=== PATIENT | male | born 1970 ===

== ENCOUNTER 2020-03-21 08:58 | Outpatient (REF) | payer BC, SELFPAY ==
[2020-03-21 11:56] LABS: Alanine Aminotransferase 40 U/L (0-40); Anion Gap 11 (12-20); Aspartate Amino Transferase 22 U/L (5-37); Blood Urea Nitrogen 20 mg/dL (9-16); Calcium 8.6 mg/dL (8.4-10.2); Carbon Dioxide 28 mmol/L (22-29); Chloride 106 mmol/L (96-108); Cholesterol 249 mg/dL; Estimated Glomerular Filt Rate > 60; Glucose Fasting 111 mg/dL (60-99); HDL Cholesterol 50 mg/dL; LDL Cholesterol Calculated 172 mg/dl; Potassium 4.2 mmol/l (3.3-5.1); Sodium 141 mmol/L (135-145); Triglycerides 138 mg/dL
== END 2020-03-21 08:59 | disposition home or self-care (01) ==
LOC: HO.HMGCLDS 08:58
PROVIDERS: PCP Internal Medicine; Visit Provider Internal Medicine
DX: E66.01 Morbid (severe) obesity due to excess calories (principal); F98.8 Other specified behavioral and emotional disorders with onset usually occurring in childhood and adolescence; I10 Essential (primary) hypertension; E78.5 Hyperlipidemia, unspecified
CPT/HCPCS: 80048; 80061; 84450; 84460

== ENCOUNTER 2020-06-27 09:06 | Outpatient (REF) | payer OTHER, SELFPAY ==
[2020-06-27 11:54] LABS: Alanine Aminotransferase 41 U/L (0-40); Anion Gap 16 (12-20); Aspartate Amino Transferase 26 U/L (5-37); Blood Urea Nitrogen 14 mg/dL (9-16); Carbon Dioxide 25 mmol/L (22-29); Chloride 101 mmol/L (96-108); Cholesterol 207 mg/dL; Estimated Glomerular Filt Rate > 60; Glucose Fasting 115 mg/dL (60-99); HDL Cholesterol 42 mg/dL; LDL Cholesterol Calculated 110 mg/dl; Potassium 3.9 mmol/L (3.3-5.1); Sodium 138 mmol/L (135-145); Triglycerides 278 mg/dL
== END 2020-06-27 09:07 | disposition home or self-care (01) ==
LOC: HO.HMGCLDS 09:06
PROVIDERS: PCP Internal Medicine; Visit Provider Internal Medicine
DX: E66.01 Morbid (severe) obesity due to excess calories (principal); I10 Essential (primary) hypertension; E78.5 Hyperlipidemia, unspecified; F98.8 Other specified behavioral and emotional disorders with onset usually occurring in childhood and adolescence
CPT/HCPCS: 36415; 80048; 80061; 84450; 84460

== ENCOUNTER 2021-03-28 06:25 | Outpatient (REF) | payer BC, SELFPAY | END 2021-03-28 06:26 | disposition home or self-care (01) | LOC: HO.HMGCLDS 06:25 | PROVIDERS: PCP Internal Medicine; Visit Provider Internal Medicine | DX: Z20.822 Contact with and (suspected) exposure to COVID-19 (principal) | CPT/HCPCS: C9803; U0003; U0005 ==

== ENCOUNTER 2021-10-05 09:31 | Outpatient (REF) | payer BC, SELFPAY ==
[2021-10-05 12:44] LABS: Alanine Aminotransferase 113 U/L (0-40); Albumin Level 4.2 g/dL (3.5-5.0); Alkaline Phosphatase 62 U/L (39-117); Anion Gap 10 (12-20); Aspartate Amino Transferase 60 U/L (5-37); Bilirubin Total 0.7 mg/dL (0.0-1.0); Blood Urea Nitrogen 17 mg/dL (9-16); Calcium 9.1 mg/dL (8.4-10.2); Carbon Dioxide 27 mmol/L (22-29); Chloride 107 mmol/L (96-108); Cholesterol 205 mg/dL; Estimated Glomerular Filt Rate > 60; Glucose Fasting 106 mg/dL (60-99); HDL Cholesterol 62 mg/dL; LDL Cholesterol Calculated 131 mg/dl; Potassium 4.4 mmol/L (3.3-5.1); Sodium 140 mmol/L (135-145); Triglycerides 60 mg/dL
[2021-10-05 13:02] LABS: Vitamin D 25-OH Total 26.1 ng/mL (>30)
[2021-10-05 14:43] LABS: Estimated Average Glucose 105 mg/dL; Hemoglobin A1c % 5.3 %
== END 2021-10-05 09:32 | disposition home or self-care (01) ==
LOC: HO.HMGCLDS 09:31
PROVIDERS: Visit Provider Internal Medicine
DX: E66.01 Morbid (severe) obesity due to excess calories (principal); E78.5 Hyperlipidemia, unspecified; F98.8 Other specified behavioral and emotional disorders with onset usually occurring in childhood and adolescence; I10 Essential (primary) hypertension; R73.01 Impaired fasting glucose
CPT/HCPCS: 36415; 80053; 80061; 82306; 83036

== ENCOUNTER 2022-01-11 07:28 | Outpatient (REF) | payer BC, SELFPAY ==
[2022-01-11 12:03] LABS: Alanine Aminotransferase 38 U/L (0-40); Albumin Level 4.3 g/dL (3.5-5.0); Alkaline Phosphatase 63 U/L (39-117); Aspartate Amino Transferase 27 U/L (5-37); Bilirubin Direct 0.4 mg/dL (0.0-0.5); Cholesterol 210 mg/dL; HDL Cholesterol 56 mg/dL; LDL Cholesterol Calculated 134 mg/dl; Triglycerides 101 mg/dL
== END 2022-01-11 07:29 | disposition home or self-care (01) ==
LOC: HO.HMGCLDS 07:28
PROVIDERS: PCP Internal Medicine; Visit Provider Internal Medicine
DX: E78.5 Hyperlipidemia, unspecified (principal); R74.8 Abnormal levels of other serum enzymes
CPT/HCPCS: 36415; 80061; 80076

== ENCOUNTER → 2022-02-28 14:26 | Outpatient (BNVA) | payer BC, SELFPAY | PROVIDERS: PCP Internal Medicine; Visit Provider Urology | DX: Z30.2 Encounter for sterilization (principal); F41.8 Other specified anxiety disorders | CPT/HCPCS: 55250 ==

== ENCOUNTER 2022-11-21 08:24 | Outpatient (AMB) | payer BC, SELFPAY ==
[2022-11-21 08:26] VITALS: BP 142/78; PULSE 90; O2SAT 98; BMI 40.7
--- NOTE | 2022-11-21 08:26 | MHC.PC.OV ---
Vital Signs 11/21/22 08:26 Height 5 ft 6 in Weight 252 lb BMI 40.7 BP 142/78 H Blood Pressure Location Rt brachial Position Sitting Pulse 90 Pulse Source Pulse Oximeter Pulse Oximetry (%) 98 Intake Visit Reasons: Physical exam Intake Note: pt is here for physical exam, pt states he as not had colonoscopy done, would like stool mail kit [employer] Worker Required: No Accompanied by: Self / Same As Patient Allergies No Known Allergies Allergy (Verified 11/21/22 08:44) Medication List - Last Reconciled 11/21/22 by Lori Fong MD bupropion HCl 300 mg PO QAM dextroamphetamine-amphetamine 10 mg 10 mg PO BID lisinopril 10 mg PO DAILY multivitamin 1 tab PO DAILY rosuvastatin 5 mg PO .three times a week 90 days zolpidem 10 mg PO BEDTIME PRN Tobacco use date assessed: 11/21/22 Dental Screening Dental Screen Date: 11/21/22 Did you have a dental visit in the last 12 months?: Yes Did you have a dental problem in the last 6 months where you did not have access to dental care?: No Was dental information given to patient?: Patient has dentist HPI Physical exam HPI Details 52 year here today for physical exam has hypertension currently on lisinopril, with blood pressure at home running from between 120-130 systolic over 80, occasionally get it up to 140/80 but very rare. He has dyslipidemia currently on rosuvastatin, has chronic insomnia takes zolpidem as needed, has ADD on Adderall stable controlled on present medication and takes bupropion for anxiety disorder, currently being followed by Psychiatrist online. Has not had a colonoscopy but would like to do the Cologuard testing instead. Has had his COVID vaccinations including the bivalent booster and up-to-date with his flu shot and Tdap. [facility] Medical History Attention deficit disorder (ADD) in adult Colon cancer screening Dyslipidemia Elevated liver enzymes Essential hypertension Impaired fasting glucose Insomnia Morbid obesity Surgical History No pertinent past surgical history Family History Father Arthritis Mother No problems noted. Brother No problems noted. 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 45922 - PHQ-9 Billing: Patient declined-do not bill (Patient states that he currently is already being seen by Psychiatry) Source: Developed by Drs. Ariel Garcia, Dunia Maria, Milind Foster and colleagues, with an educational britta from [employer]. Thrive Questionnaire Date Thrive assessed: 11/21/22 I am a: Patient What is your living situation today?: I have a steady place to live Within the past 12 months, did the food you bought not last and you didn't have the money to get more?: Never true Within the past 12 months, did you worry whether your food would run out before you got money to buy more?: Never true Do you have trouble paying for medicines?: No Do you have trouble getting transportation to medical appointments?: No Do you have trouble paying your heating and electricity bill?: No Do you have trouble taking care of your child, family member or friend?: No Do you have trouble with day-to-day activities such as bathing, preparing meals, shopping, managing finances, etc.?: No Are you currently unemployed and looking for a job?: No Are you interested in more education?: No AUDIT C Alcohol Use Questionnaire (AUDIT-C) 1. How often do you have a drink containing alcohol?: Never Total Score: 0 MINA-7 AMB Questionnaire MINA-7 Date MINA - 7 assessed: 11/21/22 Source: Developed by Drs. Ariel Garcia, Dunia Maria, Milind Foster and colleagues, with an educational britta from [employer]. MINA-7 Assessment Billing MINA-7 Assessment Tool: pt declined-do not bill (States he is already being seen by Psychiatry) Review of Systems Const Denies chills, Denies fever(s), Denies snoring and Reports weight loss Eyes Reports no additional complaints ENT Reports no additional complaints Card Denies chest pain at rest, Denies chest pain with activity, Denies syncope, Denies irregular heart rhythm, Denies lightheadedness, Denies dyspnea and Denies dyspnea on exertion Resp Denies cough, Denies dyspnea, Denies dyspnea on exertion and Denies snoring GI Denies abdominal pain, Denies melena, Denies hematochezia and Denies heartburn Reports as per HPI Musc Reports no additional complaints Skin/Breast Details: Notices that he gets hives when he eats peanut butter Denies lesions and Denies rash Neuro Denies syncope Psych Reports no additional complaints Endo Reports no additional complaints Nasir/Lymph Reports no additional complaints Aller/Immun Reports no additional complaints Physical exam (Primary Care) Vital Signs: Last Vital Signs Pulse 90 11/21/22 08:26 BP 142/78 H 11/21/22 08:26 Pulse Ox 98 11/21/22 08:26 BMI result Body Mass Index 40.7 Tobacco/Smoking Status: Tobacco use Status Tobacco use date assessed 11/21/22 11/21/22 08:28 Patient Tobacco Use Status Never used Tobacco 11/21/22 08:28 e-Cigarette/Vaping Use Never Used 11/21/22 08:28 Thrive Assessment: Date of Thrive Assessment Date Thrive assessed 11/21/22 11/21/22 08:38 Const General: no acute distress and alert Nutritional Appearance: obese Orientation/consciousness: patient oriented x3 Limitations: no limitations [facility] Head: Yes atraumatic Ears: hearing grossly normal bilaterally General nose exam: Normal external nose present Face and sinus: Yes face symmetric Eyes Other: Wears corrective lenses, up-to-date with his vision exam, sees [place] [facility] General: appearance normal, both eyes and all related structures Neck Neck: Yes full ROM, Yes no lymphadenopathy and Yes supple Chest Chest palpation & inspection: normal inspection of the chest and normal palpation of entire chest wall Resp Auscultation: clear to auscultation bilaterally Cardio Other: S1-S2 present , regular rate and rhythm GI Palpation (GI): Soft to palpation, nontender, no guarding and no masses Male General Exam: Yes normal external exam Back/Spine/Pelvis Back: No back tenderness Skin General skin exam: no rashes or lesions noted Neuro General: patient oriented x3, gait normal, moves all extremities, no focal motor deficits and CN's II-XI intact bilaterally Gait exam (Neuro): Normal gait present Extrem General: Yes full ROM, Yes no joint enlargement, Yes no clubbing, cyanosis or edema, Yes no pedal edema, Yes no calf tenderness and Yes normal gait Psych Appearance: grossly normal and well kempt Mental Status: mental status grossly normal Speech and movement: Clear speech present Affect: normal affect Assessment and Plan Assessment & Plan (1) Annual visit for general adult medical examination with abnormal findings: Code(s): Z00.01 - Encounter for general adult medical examination with abnormal findings Plan: Will check appropriate labs. Continue with regular dental visit every 6 months and regular eye exams, sees [facility]. Take adequate calcium in diet and vitamin-D 3 at 2000 IU per cap once a day, in addition to weight-bearing exercises to help maintain good muscle tone and weight control. Instructed to do self-testicular exam to check for any mass. Recently had a vasectomy. Cologuard testing ordered up-to-date with all his vaccines and to get yearly flu shot and the new COVID booster when it is out (2) Essential hypertension: Code(s): I10 - Essential (primary) hypertension Plan: Blood pressure at home has been running from between 120 to 130 systolic over 80. Occasionally would run in the 140/80 but very infrequent . Blood pressure goal is less than 130/80. Continue with lisinopril 10 mg daily. . Continue monitor blood pressure at home, call if persistently over 140/90. Reinforced importance of following a low sodium diet, getting regular exercise, and lowering stress levels. (3) Dyslipidemia: Code(s): E78.5 - Hyperlipidemia, unspecified Plan: fasting lipid profile ordered . Continue with rosuvastatin 5 mg taken 3 times a week , in addition to adherence to low-cholesterol diet and regular exercise, at least 30 minutes 3 to 4 times a week. Advised patient to make healthy food choices, eat more fruits, vegetables, whole grains, wild caught fish and low-fat dairy. Limit amount of meat and fried or fatty food products, as well as processed foods and fast foods.. (4) Insomnia: Code(s): G47.00 - Insomnia, unspecified Qualifiers: Insomnia type: primary Qualified Code(s): F51.01 - Primary insomnia Plan: Refill sent for zolpidem, to take as needed for insomnia (5) Impaired fasting glucose: Code(s): R73.01 - Impaired fasting glucose (6) Morbid obesity: Code(s): E66.01 - Morbid (severe) obesity due to excess calories Plan: Recommended focusing on improving your health instead of dieting. : Eat Mediterranean diet, limit foods high in fat, sugar, and calories, eat slowly, pay attention to portion sizes, plan your meals ahead of time, start regular physical activity 150 minutes of moderate intensity exercise or 90 minutes/week of vigorous exercise and increase water intake. (7) Attention deficit disorder (ADD) in adult: Code(s): F98.8 - Other specified behavioral and emotional disorders with onset usually occurring in childhood and adolescence Plan: Stable controlled on dextroamphetamine-amphetamine, 10 mg taken twice a day a.m. and p.m. at around 02:00 o'clock in the afternoon. Refill sent (8) Colon cancer screening: Code(s): Z12.11 - Encounter for screening for malignant neoplasm of colon Plan: Cologuard test ordered Orders: Orders Alanine Aminotransferase 05/30/23 E66.01 - Morbid (severe) obesity due to excess calories, E78.5 - Hyperlipidemia, unspecified, F98.8 - Other specified behavioral and emotional disorders with onset usually occurring in childhood and adolescence, G47.00 - Insomnia, unspecified, I10 - Essential (primary) hypertension, R73.01 - Impaired fasting glucose, Z00.01 - Encounter for general adult medical examination with abnormal findings Aspartate Amino Transferase 05/30/23 E66.01 - Morbid (severe) obesity due to excess calories, E78.5 - Hyperlipidemia, unspecified, F98.8 - Other specified behavioral and emotional disorders with onset usually occurring in childhood and adolescence, G47.00 - Insomnia, unspecified, I10 - Essential (primary) hypertension, R73.01 - Impaired fasting glucose, Z00.01 - Encounter for general adult medical examination with abnormal findings Basic Metabolic Panel Fasting 05/30/23 E66.01 - Morbid (severe) obesity due to excess calories, E78.5 - Hyperlipidemia, unspecified, F98.8 - Other specified behavioral and emotional disorders with onset usually occurring in childhood and adolescence, G47.00 - Insomnia, unspecified, I10 - Essential (primary) hypertension, R73.01 - Impaired fasting glucose, Z00.01 - Encounter for general adult medical examination with abnormal findings Hemoglobin A1c 05/30/23 E66.01 - Morbid (severe) obesity due to excess calories, E78.5 - Hyperlipidemia, unspecified, F98.8 - Other specified behavioral and emotional disorders with onset usually occurring in childhood and adolescence, G47.00 - Insomnia, unspecified, I10 - Essential (primary) hypertension, R73.01 - Impaired fasting glucose, Z00.01 - Encounter for general adult medical examination with abnormal findings Lipid Panel 05/30/23 E66.01 - Morbid (severe) obesity due to excess calories, E78.5 - Hyperlipidemia, unspecified, F98.8 - Other specified behavioral and emotional disorders with onset usually occurring in childhood and adolescence, G47.00 - Insomnia, unspecified, I10 - Essential (primary) hypertension, R73.01 - Impaired fasting glucose, Z00.01 - Encounter for general adult medical examination with abnormal findings Referrals Cologuard Test Z12.11 - Encounter for screening for malignant neoplasm of colon, Z12.12 - Encounter for screening for malignant neoplasm of rectum Medications: Changed From dextroamphetamine-amphetamine 10 mg administer doses at least 4-6 hours apart 10 mg PO BID 60 tabs 0RF F98.8 - Other specified behavioral and emotional disorders with onset usually occurring in childhood and adolescence To dextroamphetamine-amphetamine 10 mg Do not take 2nd dose later than 3 pm 10 mg PO BID 60 tabs 0RF F98.8 - Other specified behavioral and emotional disorders with onset usually occurring in childhood and adolescence Refilled lisinopril 10 mg PO DAILY 90 tabs 3RF I10 - Essential (primary) hypertension dextroamphetamine-amphetamine 10 mg administer doses at least 4-6 hours apart 10 mg PO BID 60 tabs 0RF F98.8 - Other specified behavioral and emotional disorders with onset usually occurring in childhood and adolescence zolpidem 10 mg PO BEDTIME PRN 10 tabs 0RF sleep G47.00 - Insomnia, unspecified Coding Level of Care Code New Pt Prev Care 40-64y(53203) Diagnoses Annual visit for general adult medical examination with abnormal findings Z00.01 Essential hypertension I10 Dyslipidemia E78.5 Insomnia F51.01 Insomnia type: primary Impaired fasting glucose R73.01 Morbid obesity E66.01 Attention deficit disorder (ADD) in adult F98.8 Colon cancer screening Z12.11
== END 2022-11-21 09:39 | disposition home or self-care (01) ==
PROVIDERS: Visit Provider Internal Medicine
DX: Z00.01 Encounter for general adult medical examination with abnormal findings (principal); I10 Essential (primary) hypertension; E66.01 Morbid (severe) obesity due to excess calories; Z68.41 Body mass index [BMI] 40.0-44.9, adult; E78.5 Hyperlipidemia, unspecified; F51.01 Primary insomnia; R73.01 Impaired fasting glucose; F98.8 Other specified behavioral and emotional disorders with onset usually occurring in childhood and adolescence; Z12.11 Encounter for screening for malignant neoplasm of colon
CPT/HCPCS: 99396

== ENCOUNTER 2023-01-18 09:24 | Outpatient (AMB) | payer BC, SELFPAY ==
--- NOTE | 2023-01-18 09:57 | AM.OFFWIN_ITS ---
Intake Vital Signs 01/18/23 09:58 Height 5 ft 6 in Weight 114.305 kg BMI 40.7 BP 150/90 H Blood Pressure Location Rt brachial Position Sitting Pulse 80 Pulse Source Pulse Oximeter Temp 98.0 F Temp Source Oral Intake Visit Reasons: EP, finger stitches removal [phone] Intake Note: Pt is here today for Rt hand middle finger stitches removal Patient Tobacco Use Status: Never used Tobacco Allergies No Known Allergies Allergy (Verified 11/21/22 08:44) Do you need a note to return to daycare/school/sports/work: No HPI HPI Comments History of Present Illness Details 1002 52-year-old male presents for suture rem oval. No related complaints. No fevers, chills, redness, discharge from site, numbness or tingling. Physical exam significant for healing laceration to hand Plan at this time suture removal. This is a simple suture removal no signs of infection or abscess. No signs of neurovascular compromise. Educated patient on diagnosis and treatment plan, answered all question, patient verbalizes understanding. At this time patient will be discharged home, advised to return with new or worsening symptoms. Educated on worrisome signs and symptoms and when to return. At this time I feel comfortable discharge home. [facility] Medical History Elevated liver enzymes Colon cancer screening Impaired fasting glucose Insomnia Morbid obesity Dyslipidemia Essential hypertension Attention deficit disorder (ADD) in adult Surgical History No pertinent past surgical history Family History Father Arthritis Mother No problems noted. Brother No problems noted. 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 Oriented X3.? No acute distress.? Head: Normocephalic, atraumatic, no step-offs or deformities Eyes: Pupils equal, round and reactive to light.? CVS: Normal heart rate and rhythm.? Pulses normal.? Respiratory: No respiratory distress.? Breath sounds normal.? Skin: Skin warm and dry.? Normal skin color.? Normal skin turgor.?+ [address] to right middle finger ( healing well) Extremities: No lower extremity edema.? No calf ttp. 5/5 strength to bilateral upper and lower extremities Neuro: Oriented X 3.? No motor deficit.? No sensory deficit. CN 2-12 intact Assessment & Plan Assessment & Plan (1) Visit for suture removal: Code(s): Z48.02 - Encounter for removal of sutures Plan Take your medications as prescribed. If you were prescribed antibiotics today, it is important that you take your medication to their entirety, do not skip any doses, do not finish them early. Follow-up with your primary care provider this week. Return to the emergency department with new or worsening symptoms. Such as fevers, chills, chest pain, shortness of breath, nausea, vomiting, dizziness, headache, vision changes, lethargy In case of emergency call 911 Coding Level of Care Code Est Pt Level 3 (45916) Diagnoses Visit for suture removal Z48.02
[2023-01-18 09:58] VITALS: BP 150/90; PULSE 80; TEMP 36.7; BMI 40.7
== END 2023-01-18 14:56 | disposition home or self-care (01) ==
PROVIDERS: PCP Internal Medicine; Visit Provider Physician Assistant
DX: Z48.02 Encounter for removal of sutures (principal)
CPT/HCPCS: 99213

== ENCOUNTER 2023-05-29 06:18 | Outpatient (REF) | payer BC, SELFPAY ==
[2023-05-29 10:49] LABS: Estimated Average Glucose 117 mg/dL; Hemoglobin A1c % 5.7 % (<6.0)
[2023-05-29 11:04] LABS: Alanine Aminotransferase 36 U/L (0-40); Anion Gap 10 (12-20); Aspartate Amino Transferase 22 U/L (5-37); Blood Urea Nitrogen 18 mg/dL (9-16); Calcium 9.2 mg/dL (8.4-10.2); Carbon Dioxide 26 mmol/L (22-29); Chloride 106 mmol/L (96-108); Cholesterol 201 mg/dL (<200); Estimated Glomerular Filt Rate > 60; Glucose Fasting 115 mg/dL (60-99); HDL Cholesterol 52 mg/dL (>40); LDL Cholesterol Calculated 126 mg/dL (<100); Sodium 138 mmol/L (135-145); Triglycerides 115 mg/dL (<150)
[2023-05-29 11:10] LABS: Vitamin D 25-OH Total 26.4 ng/mL (>30)
== END 2023-05-29 06:19 | disposition home or self-care (01) ==
LOC: HO.HMGCLDS 06:18
PROVIDERS: PCP Internal Medicine; Visit Provider Internal Medicine
DX: Z00.01 Encounter for general adult medical examination with abnormal findings (principal); E66.01 Morbid (severe) obesity due to excess calories; E78.5 Hyperlipidemia, unspecified; I10 Essential (primary) hypertension; F98.8 Other specified behavioral and emotional disorders with onset usually occurring in childhood and adolescence; R73.01 Impaired fasting glucose; G47.00 Insomnia, unspecified
CPT/HCPCS: 36415; 80048; 80061; 82306; 83036; 84450; 84460

== ENCOUNTER 2023-06-02 08:22 | Outpatient (AMB) | payer BC, SELFPAY ==
[2023-06-02 08:27] VITALS: BP 136/80; PULSE 92; O2SAT 96; BMI 41.3
--- NOTE | 2023-06-02 08:27 | MHC.PC.OV ---
Vital Signs 06/02/23 08:27 Height 5 ft 6 in Weight 256 lb BMI 41.3 BP 136/80 Blood Pressure Location Lt brachial Position Sitting Pulse 92 Pulse Source Pulse Oximeter Pulse Oximetry (%) 96 Oxygen Delivery Method Room Air Intake Visit Reasons: 6 month fu HTN Intake Note: Pt is here today for 6 months follow up visit. Allergies No Known Allergies Allergy (Verified 06/02/23 08:52) Medication List - Last Reconciled 06/02/23 by Lori Fong MD bupropion HCl 300 mg PO QAM dextroamphetamine-amphetamine 10 mg 10 mg PO BID lisinopril 10 mg PO DAILY multivitamin 1 tab PO DAILY rosuvastatin 5 mg PO .three times a week 90 days zolpidem 10 mg PO BEDTIME PRN Tobacco use date assessed: 06/02/23 Dental Screening Dental Screen Date: 06/02/23 Did you have a dental visit in the last 12 months?: Yes Did you have a dental problem in the last 6 months where you did not have access to dental care?: No Was dental information given to patient?: Patient has dentist HPI 6 month fu HTN HPI Details 53-year-old male with hypertension, hyperlipidemia, prediabetes, attention deficit disorder, morbid obesity, and generalized anxiety disorder, here today for follow-up. He states that he has been off his Adderall now for several months due to the shortage of the medication,, has been having some issues keeping his concentration and focus while at work, and would like to get another prescription sent to his pharmacy to see if it is available. He did notice that once he was off Adderall his blood pressure has been better, has been checking it at at home and it has been running from between 120 to 130/80, with occasional episodes that it goes up to 150-170 systolic whenever he is under lot of stress. Denies any chest pain, shortness of breath, palpitations, headache or lightheadedness. Anxiety controlled on bupropion , and takes zolpidem only as needed when he has difficulty sleeping at night, which is infrequent. Latest fasting labs done showed he has prediabetes but hemoglobin A1c is at 5.7%. Fasting lipids showed improvement in his LDL cholesterol, still has low vitamin-D level at 26 ng/ml His Cologuard test came back positive and has been referred to [facility] for a diagnostic colonoscopy. [facility] Medical History Vitamin D deficiency Positive colorectal cancer screening using Cologuard test Elevated liver enzymes Colon cancer screening Impaired fasting glucose Insomnia Morbid obesity Dyslipidemia Essential hypertension Attention deficit disorder (ADD) in adult Surgical History No pertinent past surgical history Family History Father Arthritis Mother No problems noted. Brother No problems noted. 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 1. Little interest or pleasure in doing things: not at all 2. Feeling down, depressed, or hopeless: not at all 3. Trouble falling or staying asleep, or sleeping too much: not at all 4. Feeling tired or having little energy: not at all 5. Poor appetite or overeating: not at all 6. Feeling bad about yourself - or that you are a failure or have let yourself or your family down: not at all 7. Trouble concentrating on things, such as reading the newspaper or watching television: not at all 8. Moving or speaking so slowly that other people could have noticed. Or the opposite - being so fidgety or restless that you have been moving around a lot more than usual: not at all 9. Thoughts that you would be better off or of hurting yourself in some way: not at all Total score: 0 Depression Screening Interpretation: Negative Depression Screening Done: Yes 14856 - PHQ-9 Billing: Yes Source: Developed by Drs. Ariel Garcia, Dunia Maria, Milind Foster and colleagues, with an educational britta from [employer]. Thrive Questionnaire Date Thrive assessed: 06/02/23 I am a: Patient What is your living situation today?: I have a steady place to live Within the past 12 months, did the food you bought not last and you didn't have the money to get more?: Never true Within the past 12 months, did you worry whether your food would run out before you got money to buy more?: Never true Do you have trouble paying for medicines?: No Do you have trouble getting transportation to medical appointments?: No Do you have trouble paying your heating and electricity bill?: No Do you have trouble taking care of your child, family member or friend?: No Do you have trouble with day-to-day activities such as bathing, preparing meals, shopping, managing finances, etc.?: No Are you currently unemployed and looking for a job?: No Are you interested in more education?: No THRIVE Score: 0 AUDIT C Alcohol Use Questionnaire (AUDIT-C) 1. How often do you have a drink containing alcohol?: 2-3 times a week 2. How many drinks containing alcohol do you have on a typical day when you are drinking?: 1 or 2 3. How often do you have six or more drinks on one occasion?: Never Total Score: 3 MINA-7 AMB Questionnaire MINA-7 Date MINA - 7 assessed: 06/02/23 Feeling nervous, anxious, or on edge: 0 = Not at all Not being able to stop or control worryin = Not at all Worrying too much about different things: 1 = Several days Trouble relaxin = Not at all Being so restless that it is hard to sit still: 0 = Not at all Becoming easily annoyed or irritable: 0 = Not at all Feeling afraid as if something awful might happen: 0 = Not at all Total MINA-7 score (0-4 normal; 5-9 mild; 10-14 moderate; 15-21 severe): 1 Source: Developed by Drs. Ariel Garcia, Dunia Maria, Milind Foster and colleagues, with an educational britta from [employer]. MINA-7 Assessment Billing MINA-7 Assessment Tool: MINA-7 Assessment 85769 Review of Systems Const Denies chills, Denies fever(s) and Denies snoring Eyes Reports no additional complaints ENT Reports no additional complaints Card Denies chest pain at rest, Denies chest pain with activity, Denies syncope, Denies irregular heart rhythm, Denies lightheadedness and Denies dyspnea on exertion Resp Denies cough, Denies dyspnea on exertion and Denies snoring GI Denies abdominal pain, Denies melena, Denies hematochezia and Denies heartburn Reports no additional complaints Musc Reports no additional complaints Skin/Breast Details: Notices that he gets hives when he eats peanut butter Denies lesions and Denies rash Neuro Denies syncope Psych Reports as per HPI Endo Reports no additional complaints Nasir/Lymph Reports no additional complaints Aller/Immun Reports no additional complaints Physical exam (Primary Care) Vital Signs: Last Vital Signs Pulse 92 06/02/23 08:27 BP 136/80 06/02/23 08:27 Pulse Ox 96 06/02/23 08:27 Oxygen Delivery Method Room Air 06/02/23 08:27 BMI result Body Mass Index 41.3 BMI Assessment/Plan discussion: High BMI High, discussed plan: lifestyle, weight reduction, dietary, physical activity and alcohol moderation Tobacco/Smoking Status: Tobacco use Status Tobacco use date assessed 06/02/23 06/02/23 08:31 Patient Tobacco Use Status Never used Tobacco 06/02/23 08:31 e-Cigarette/Vaping Use Never Used 06/02/23 08:31 Depression Screening Interpretation: Negative Thrive Assessment: Date of Thrive Assessment Date Thrive assessed 11/21/22 06/02/23 08:31 Const General: comfortable, no acute distress and alert Nutritional Appearance: obese morbidly obese Orientation/consciousness: patient oriented x3 HENMT Head: Yes normocephalic Ears: hearing grossly normal bilaterally General nose exam: Normal external nose present Face and sinus: Yes face symmetric Eyes Other: Wears corrective lenses, up-to-date with his vision exam, sees [place] vision associated General: appearance normal, both eyes and all related structures Neck Neck: Yes full ROM, Yes no lymphadenopathy and Yes supple Chest Chest palpation & inspection: normal inspection of the chest and normal palpation of entire chest wall Resp Auscultation: clear to auscultation bilaterally Cardio Other: S1-S2 present , regular rate and rhythm GI Palpation (GI): Soft to palpation, nontender, no guarding and no masses Male General Exam: Yes normal external exam Back/Spine/Pelvis Back: No back tenderness Skin General skin exam: no rashes or lesions noted Neuro General: patient oriented x3, gait normal, moves all extremities, no focal motor deficits and CN's II-XI intact bilaterally Gait exam (Neuro): Normal gait present Extrem General: Yes full ROM, Yes no joint enlargement, Yes no clubbing, cyanosis or edema, Yes no pedal edema, Yes no calf tenderness and Yes normal gait Psych Appearance: grossly normal and well kempt Mental Status: mental status grossly normal Speech and movement: Clear speech present Affect: normal affect Results Reviewed Results Reviewed: NTERED: 05/29/[address]: ORDERED: Met Prof Fast, AST, ALT, Lipid Panel, Vitamin D 25-OH Test Result Flag Reference Sodium 138 135-145 mmol/L Potassium 4.0 3.3-5.1 mmol/L CL 106 96-108 mmol/L CO2 26 22-29 mmol/L Gap 10 L 12-20 BUN 18 H 9-16 mg/dL Creat 0.96 0.5-1.4 mg/dL EGFR > 60 NOTE: For -Citizen Of [place] individuals, multiply the result by 1.210. Chronic Kidney Disease: Estimated GFR < 60 mL/min/1.73m2 Severe Kidney Disease: Estimated GFR < 15 mL/min/1.73m2 FBS 115 H 60-99 mg/dL A fasting glucose from 100-125 mg/dl is considered impaired (pre-diabetes). CA 9.2 8.4-10.2 mg/dL AST (GOT) 22 5-37 U/L ALT (GPT) 36 0-40 U/L Triglyceride 115 <150 mg/dL Desirable Triglyceride: less than 150 mg/dL Borderline High Triglyceride 150-199 mg/dL High Triglyceride: 200-499 mg/dL Very High Triglyceride: greater than or equal to 5OO mg/dL Cholesterol 201 H <200 mg/dL Desirable Cholesterol: less than 200 mg/dL Borderline High Cholesterol: 200-239 mg/dL High Cholesterol: greater than 239 mg/dL LDL Calculated 126 H <100 mg/dL Desirable LDL: less than 100 mg/dL Near Optimal/Above Optimal LDL: 110-129 mg/dL Borderline High LDL: 130-159 mg/dL High LDL: 160-189 mg/dL Very High LDL: greater than or equal to 190 mg/dL HDL 52 >40 mg/dL Desirable HDL: greater than 40 mg/dL Note: This HDL assay may give artificially low results in patients with liver disease. Vit D 25-OH Tot 26.4 L >30 ng/mL Health Based Reference Values* < 20 ng/mL Deficient 20-30 ng/mL Insufficient > 30 ng/mL Sufficient Laboratory Tests 05/29/23 06:28 Estimat Average Glucose 117 Hemoglobin A1c % 5.7 Assessment and Plan Assessment & Plan (1) Vitamin D deficiency: Code(s): E55.9 - Vitamin D deficiency, unspecified Plan: Prescription sent for high[place] 3 [place] [address] units per capsule to take once a week for the next 3 months. Once finished taking prescription, continue taking [id number] vitamin-D 3 at 2000 units once a day (2) Positive colorectal cancer screening using Cologuard test: Code(s): R19.5 - Other fecal abnormalities Plan: Already ordered a GI consult for diagnostic colonoscopy. (3) Insomnia: Code(s): G47.00 - Insomnia, unspecified Qualifiers: Insomnia type: primary Qualified Code(s): F51.01 - Primary insomnia Plan: Refill sent on his zolpidem prescription, to take only as needed for acute episodes of insomnia (4) Impaired fasting glucose: Code(s): R73.01 - Impaired fasting glucose Plan: Your fasting blood sugars elevated above 100 mg/dL. Impaired glucose metabolism makes you at risk for developing diabetes mellitus type 2, as well as heart attack and stroke later on. Stressed importance of lifestyle changes, weight loss, healthy eating habits, and regular exercise are important, and can prevent the progression to diabetes (5) Dyslipidemia: Code(s): E78.5 - Hyperlipidemia, unspecified Plan: Recent fasting labs showed improvement in his LDL cholesterol as compared to last check. Continue with rosuvastatin at the same dose in addition to adherence to healthy eating habits, regular exercise and weight (6) Essential hypertension: Code(s): I10 - Essential (primary) hypertension Plan: Blood pressure better and almost at goal, this is however off Adderall, will increase lisinopril dose to 20 mg once a day, goal blood pressure less than 130/90. Reinforced importance of following a low-salt diet, getting regular exercise, to promote weight loss, good stress management (7) Attention deficit disorder (ADD) in adult: Code(s): F98.8 - Other specified behavioral and emotional disorders with onset usually occurring in childhood and adolescence Plan: Refill sent on his Adderall prescription at the same dose. Monitor blood pressure once he starts taking Adderall again, (8) Morbid obesity: Code(s): E66.01 - Morbid (severe) obesity due to excess calories Plan: Discussed need to increase activity and weight reduction. Recommended focusing on improving health instead of dieting. Mediterranean diet is a healthy diet that helps, limit food high in fat, sugar, and calories. Eat slowly, pay attention to portion sizes, plan your meals ahead of time, start regular physical activity, at least 150 minutes of moderate intensity exercise, or 90 minutes per week of vigorous exercise. Orders: Orders Comprehensive [place]. Panel Fast 10/06/23 E55.9 - Vitamin D deficiency, unspecified, E66.01 - Morbid (severe) obesity due to excess calories, E78.5 - Hyperlipidemia, unspecified, F98.8 - Other specified behavioral and emotional disorders with onset usually occurring in childhood and adolescence, I10 - Essential (primary) hypertension, R73.01 - Impaired fasting glucose Lipid Panel 10/06/23 E55.9 - Vitamin D deficiency, unspecified, E66.01 - Morbid (severe) obesity due to excess calories, E78.5 - Hyperlipidemia, unspecified, F98.8 - Other specified behavioral and emotional disorders with onset usually occurring in childhood and adolescence, I10 - Essential (primary) hypertension, R73.01 - Impaired fasting glucose Vitamin D 25-OH Total 10/06/23 E55.9 - Vitamin D deficiency, unspecified, E66.01 - Morbid (severe) obesity due to excess calories, E78.5 - Hyperlipidemia, unspecified, F98.8 - Other specified behavioral and emotional disorders with onset usually occurring in childhood and adolescence, I10 - Essential (primary) hypertension, R73.01 - Impaired fasting glucose Medications: New bupropion HCl 300 mg PO QAM 90 tabs 3RF cholecalciferol (vitamin D3) 1,250 mcg PO QWEEK 3 months 13 caps 0RF E55.9 - Vitamin D deficiency, unspecified Refilled rosuvastatin 5 mg PO .three times a week 90 days 36 tabs 3RF E78.5 - Hyperlipidemia, unspecified zolpidem 10 mg PO BEDTIME PRN 10 tabs 0RF sleep G47.00 - Insomnia, unspecified dextroamphetamine-amphetamine 10 mg Do not take 2nd dose later than 3 pm 10 mg PO BID 60 tabs 0RF F98.8 - Other specified behavioral and emotional disorders with onset usually occurring in childhood and adolescence Coding Level of Care Code Est Pt Level 4 (21134) Diagnoses Vitamin D deficiency E55.9 Positive colorectal cancer screening using Cologuard test R19.5 Primary insomnia F51.01 Insomnia type: primary Impaired fasting glucose R73.01 Dyslipidemia E78.5 Essential hypertension I10 Attention deficit disorder (ADD) in adult F98.8 Morbid obesity E66.01 Additional Codes MINA-7 Assessment Billing - MINA-7 Assessment Tool: MINA-7 Assessment 67888 ([id number])
== END 2023-06-02 09:06 | disposition home or self-care (01) ==
PROVIDERS: PCP Internal Medicine; Visit Provider Internal Medicine
DX: R19.5 Other fecal abnormalities (principal); E66.01 Morbid (severe) obesity due to excess calories; Z68.41 Body mass index [BMI] 40.0-44.9, adult; F51.01 Primary insomnia; E55.9 Vitamin D deficiency, unspecified; R73.01 Impaired fasting glucose; E78.5 Hyperlipidemia, unspecified; I10 Essential (primary) hypertension; F98.8 Other specified behavioral and emotional disorders with onset usually occurring in childhood and adolescence
CPT/HCPCS: 99214

== ENCOUNTER 2023-07-18 09:27 | Outpatient (AMB) | payer BC, SELFPAY ==
--- NOTE | 2023-07-18 09:33 | A.OFFVIS_ITS ---
Vital Signs 07/18/23 09:35 Height 5 ft 6 in Weight 250 lb BMI 40.3 BP 137/82 Blood Pressure Location Lt brachial Position Sitting Pulse 97 Intake Visit Reasons: Other fecal abnormalities Intake Note: Patient new consult for fecal abnormalities Patient cc: diarrhea on and off, denies any other GI issues. Crisis Counselor Required: No Accompanied by: Self / Same As Patient Allergies No Known Allergies Allergy (Verified 07/18/23 09:33) HPI HPI Other fecal abnormalities: Details: 53 year old? male with past medical history of dyslipidemia, hypertension, ADD, obesity, insomnia, and anxiety is here today for pre colonoscopy screening. Patient had positive cologuard in May. ? This is his first colonoscopy screening.? Patient denies any gastrointestinal symptoms in the past or at present.? However patient does admit to occasional loose stools after drinking milk or any lactose containing food. Denies any personal or family history of gastrointestinal disease, colon polyps, or cancer.? Denies history of difficulty with sedation or anesthesia in the past.? Negative for history of sleep apnea.? Denies any history of cardiac, renal, pulmonary, or hepatic disease.?? No history of infectious? diseases like hepatitis A, B, C, HIV or tuberculosis.? Patient is not on any anticoagulation therapy. [facility] Medical History Vitamin D deficiency Positive colorectal cancer screening using Cologuard test Elevated liver enzymes Colon cancer screening Impaired fasting glucose Insomnia Morbid obesity Dyslipidemia Essential hypertension Attention deficit disorder (ADD) in adult Surgical History No pertinent past surgical history Family History Father Arthritis Mother No problems noted. Brother No problems noted. 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 Current occupational exposures/hazards: No Cognitive needs: No Hearing needs: No Vision needs: Yes Review of Systems Const Denies weight gain and Denies weight loss ENT Reports no additional complaints, Denies dysphagia and Denies odynophagia Card Reports no additional complaints Resp Reports no additional complaints GI Denies abdominal pain, Denies belching, Denies melena, Denies bloating, Denies change in bowel habits, Denies dysphagia, Denies excessive flatus, Denies dyspepsia, Denies heartburn, Denies diarrhea, Reports loose stools (Occasional with lactose), Denies nausea, Denies odynophagia and Denies vomiting Reports no additional complaints Musc Reports no additional complaints Neuro Reports no additional complaints Psych Reports no additional complaints Endo Reports no additional complaints Physical Exam Vital Signs: Last Vital Signs Pulse 97 07/18/23 09:35 BP 137/82 07/18/23 09:35 BMI result Body Mass Index 40.3 Const General: healthy appearing and no acute distress Nutritional Appearance: obese Orientation/consciousness: patient oriented x3 Resp Effort & Inspection: normal respiratory effort, able to speak in complete sentences, no tracheal deviation and symmetric chest movement Auscultation: clear to auscultation bilaterally Cardio Rate: regular rate GI Inspection: Yes normal to inspection, No distended and Yes obesity Palpation (GI): Soft to palpation, not firm, nontender and No hepatosplenomegaly present Auscultation: normal bowel sounds General: Yes no CVA tenderness Back/Spine/Pelvis Back: no CVA tenderness Skin General skin exam: elasticity normal, turgor normal and dry skin Neuro General: patient oriented x3 Psych Appearance: grossly normal Mental Status: mental status grossly normal Assessment & Plan Assessment & Plan (1) Positive colorectal cancer screening using Cologuard test: Code(s): R19.5 - Other fecal abnormalities Category: Medical Plan Patient denies any GI, cardiac or respiratory symptoms. ?Occasional loose stools when patient drinks lactose. Denies any issues with anesthesia in the past.? Denies any history of sleep apnea.? No history infectious diseases in the past or present.? Not on any anticoagulation therapy.? No family or personal history of colon cancer or polyps.? However patient had positive Cologuard in May of 2023. Patient denies melena, hematochezia, unintentional weight loss or ribbon like stools.? Discussed at length the pre-procedure,? prep, diet & medications as well as what to expect prior, during and after the procedure.?? Stressed the importance of good bowel prep. ?Recommended the use of Vaseline or Calmoseptine OTC & baby wipes with bowel movements to promote comfort.? ?Patient verbalizes understanding and agrees to plan of care.? He was given the opportunity to ask questions and all questions answered.? We will see him after the procedure.? Medications: New bisacodyl (Dulcolax (bisacodyl)) take 4 tabs at noon the day before your colonoscopy 20 mg (4 x 5 mg) PO ONCE 1 day 4 tabs 0RF Z12.11 - Encounter for screening for malignant neoplasm of colon polyethylene glycol 3350 (Miralax) As directed by gastroenterology department at [facility] 238 gra ms PO ONCE 238 grams 0RF Z12.11 - Encounter for screening for malignant neoplasm of colon
[2023-07-18 09:35] VITALS: BP 137/82; PULSE 97; BMI 40.3
== END 2023-07-18 10:20 | disposition home or self-care (01) ==
PROVIDERS: PCP Internal Medicine; Visit Provider Nurse Practitioner Family
DX: R19.5 Other fecal abnormalities (principal)
CPT/HCPCS: 99203

== ENCOUNTER → 2023-07-18 09:27 | Outpatient (BNVA) | payer BC, SELFPAY | PROVIDERS: PCP Internal Medicine; Visit Provider Nurse Practitioner Family ==

== ENCOUNTER 2023-11-27 08:26 | Day surgery (SDC) | payer BC, SELFPAY ==
[2023-11-27 08:46] VITALS: BP 135/90; PULSE 81; RESP 16; TEMP 36.3; O2SAT 98; BMI 36.4
--- NOTE | 2023-11-27 09:02 | MHC.SHP ---
Pre-Procedural Eval Section A - 24 Hr Update-Section A only Date of Service: 11/27/23 Section B - Complete if H&P > 30 days Chief Complaint: Other fecal abnormalities Relevant Family History (Specify if Yes): No Relevant Social History: None Present Medications: see Short Stay Collaborative assessment Medical History: Significant History (Vitamin D deficiency Positive colorectal cancer screening using Cologuard test Elevated liver enzymes Colon cancer screening Impaired fasting glucose Insomnia Morbid obesity Dyslipidemia Essential hypertension Attention deficit disorder (ADD) in adult) History of Previous Operations: No relevant previous surgery Allergies: Allergies Allergy/AdvReac Type Severity Reaction Status Date / Time No Known Allergies Allergy Verified 07/18/23 09:33 Review of Systems Sugical H&P ROS: Negative: Constitution, Cardiovascular, Respiratory, Neurological, Psychiatric, Hem-Onc, Allergic/Immunologic, Gastrointestinal, Genitourinary, Musculoskeletal, Integumentary, Endocrine and Eyes/Ears/Nose/Throat Exam Surgical H&P Exam: Normal: HEENT, Normal: Heart, Normal: Lungs, Normal: Extremities, Normal: Abdomen, Normal: Skin and Normal: Neurological Plan Diagnosis/Plan: Unchanged I have reviewed the history and physical and performed a pertinent physical examination on my patient. No changes have occurred unless specified. Time Spent With Patient Time: Total time managing care of this patient today ____ minutes.
--- NOTE | 2023-11-27 09:10 | P.CONAN_ITS ---
Documented by User: Donna Castillo NP 11/26/23 12:13 HPI - Anesthesia Eval Consult details Narrative: 53yo M for Colonoscopy PMFSH Active Problems Active Problems: All Active Problems Tinnitus (Acute) Vitamin D deficiency (Acute) Positive colorectal cancer screening using Cologuard test (Acute) Anxiety about health (Acute) Impaired fasting glucose (Acute) Insomnia (Acute) Morbid obesity (Acute) Dyslipidemia (Acute) Essential hypertension (Acute) Attention deficit disorder (ADD) in adult (Acute) Past Medical History Medical History Vitamin D deficiency Positive colorectal cancer screening using Cologuard test Elevated liver enzymes Colon cancer screening Impaired fasting glucose Insomnia Morbid obesity Dyslipidemia Essential hypertension Attention deficit disorder (ADD) in adult Family History Family History Father Arthritis Mother No problems noted. Brother No problems noted. Surgical History Surgical History No pertinent past surgical history Social History Social History Housing: House Are you a primary customer care manager to a significant other at home: No Do you presently have visiting nurse or other home services: No Alcohol intake: current Alcohol intake frequency: a few times a week Patient Tobacco Use Status: Never used Tobacco e-Cigarette/Vaping Use: Never Used Second Hand Smoke Exposure: No Use of substances other than those prescribed or required for medical reasons: Yes Have you been hit, kicked, punched, or otherwise hurt by someone within the past year? 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 Current occupational exposures/hazards: No Cognitive needs: No Hearing needs: No Vision needs: Yes Meds Allergies Allergy/AdvReac Type Severity Reaction Status Date / Time No Known Allergies Allergy Verified 07/18/23 09:33 Home Medications ?Medication ?Instructions ?Recorded ?Confirmed ?Last Taken ?Type multivitamin 1 tab PO DAILY 01/17/22 11/21/22 Unknown History Exam Pertinent Lab Results Pertinent Lab Results: Laboratory Tests 05/29/23 06:28 Sodium 138 Potassium 4.0 Chloride 106 Carbon Dioxide 26 BUN 18 H Creatinine 0.96 Assessment and Plan Assessment Anesthesia Assessment: Chart Reviewed Documented by User: Jennifer Riley DO 11/27/23 09:12 [facility] Past Medical History Medical History Vitamin D deficiency Positive colorectal cancer screening using Cologuard test Elevated liver enzymes Colon cancer screening Impaired fasting glucose Insomnia Morbid obesity Dyslipidemia Essential hypertension Attention deficit disorder (ADD) in adult Family History Family History Father Arthritis Mother No problems noted. Brother No problems noted. Family history of problems with anesthesia: No Surgical History Surgical History No pertinent past surgical history History of Problems with Anesthesia: No Social History Social History Housing: House Are you a primary customer care manager to a significant other at home: No Do you presently have visiting nurse or other home services: No Alcohol intake: current Alcohol intake frequency: a few times a week Patient Tobacco Use Status: Never used Tobacco e-Cigarette/Vaping Use: Never Used Second Hand Smoke Exposure: No Use of substances other than those prescribed or required for medical reasons: Yes Have you been hit, kicked, punched, or otherwise hurt by someone within the past year? 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 Current occupational exposures/hazards: No Cognitive needs: No Hearing needs: No Vision needs: Yes Meds Allergies Allergy/AdvReac Type Severity Reaction Status Date / Time No Known Allergies Allergy Verified 07/18/23 09:33 Home Medications ?Medication ?Instructions ?Recorded ?Confirmed ?Last Taken ?Type multivitamin 1 tab PO DAILY 01/17/22 11/21/22 Unknown History Exam Exam Date and Time: 11/27/23 0910 Height,Weight and Vital Signs: Height 5 ft 6 in Weight 102.33 kg Vital Signs Temperature 97.4 F 11/27/23 08:46 Pulse Rate 81 11/27/23 08:46 Respiratory Rate 16 11/27/23 08:46 Blood Pressure 135/90 H 11/27/23 08:46 Pulse Oximetry 98 11/27/23 08:46 Oxygen Delivery Method Room Air 11/27/23 08:46 Temperature 97.4 F 11/27/23 08:46 Pulse Rate 81 11/27/23 08:46 Respiratory Rate 16 11/27/23 08:46 Blood Pressure 135/90 H 11/27/23 08:46 Pulse Oximetry 98 11/27/23 08:46 Oxygen Delivery Method Room Air 11/27/23 08:46 Airway Mallampati Class: I TM Dist: >3cm Neck ROM: Full Loose/Missing/Broken Teeth: No (patient denies any loose or broken teeth) Heart: S1S2 Lungs: CTAB Assessment and Plan Assessment Anesthesia Assessment: Anesthesia Plan Discussed and Chart Reviewed Final Anesthetic Review Family History of Problems with Anesthesia: No History of Problems with Anesthesia: No NPO: Yes ASA Class: II Final Preanesthetic Review: No Changes in Pt Med Stat, Meds/Allgs Chart Reviewed, Consent Obtained/Reviewed and Anes Risks/Benef Reviewed Patient Risk: Low Procedure Risk: Low Anesthetic Plan Anesthetic Plan: MAC: and Agree w/ Assess. and Plan Disposition: Standard PACU
[2023-11-27] MEDS: Lactated Ringers 1,000 ML 100 ML IVCONT (09:23)
--- NOTE | 2023-11-27 10:20 | HO.OPN-COLON ---
Colonoscopy Operative Note Operative Note Date of Service: 11/27/23 Narrative: Operative Information Procedure Description: Colonoscopy Indication: pos cologuard Anesthesia: MAC COLONOSCOPY Instrument: Olympus variable stiffness ADULT scope 190L Colonoscopy Monitoring: Vital signs and clinical assessment, continuous EKG monitoring, Pulse oximetry, Carbon Dioxide monitoring and blood pressure monitoring were done throughout the procedure. Colon withdrawal time was 9 minutes. Procedure: The patient was placed in the left lateral decubitis position and pre-procedure medications were administered. After a digital rectal examination of the ano-rectum, the video colonoscope was inserted into the rectum and advanced through the colon to the cecum/TI. The colonoscope was slowly withdrawn in a retrograde panoramic fashion and the colon mucosa was carefully examined including a retroflexed view of the rectum. Findings and interventions are described below. Procedure Difficulty: easy Findings: Terminal Ileum-normal Cecum: 6-8 mm sessile polyp removed with cold snare Right sided retroflexion- normal Ascending Colon: normal Transverse Colon -normal Descending Colon:normal Sigmoid Colon: normal Rectum: Retroflexion with moderate sized inflammed internal hemorrhoids seen, grade I Anorectum - normal Intervention: cold snare Colon preparation: [place] Bowel Preparation Scale Right colon; 2 Transverse colon: 3 Left colon; 2 (0 = Unprepared colon segment with mucosa not seen due to solid stool that cannot be cleared. 1 = Portion of mucosa of the colon segment seen, but other areas of the colon segment not well seen due to staining, residual stool and/or opaque liquid. 2 = Minor amount of residual staining, small fragments of stool and/or opaque liquid, but mucosa of colon segment seen well. 3 = Entire mucosa of colon segment seen well with no residual staining, small fragments of stool or opaque liquid) Impression and Post Procedure Diagnosis: colon polyp internal hemorrhoids Plan: High fiber diet leaflet Avoid straining at stool, epsom salts and sitz bath, anusol supps or cream Repeat Colonoscopy in 5-6 years due to polyp or earlier if clinically indicated Above findings were reviewed with the patient and relevant handouts were provided if indicated.
[2023-11-27 10:24] VITALS: BP 111/63; PULSE 75; RESP 16; TEMP 36.3; O2SAT 95
[2023-11-27 10:39] VITALS: BP 110/77; PULSE 74; RESP 18; TEMP 36.5; O2SAT 96
== END 2023-11-27 11:02 | disposition home or self-care (01) ==
PROVIDERS: PCP Internal Medicine; Visit Provider Internal Medicine Gastroenterology
PROC: 0DJD8ZZ Inspection of Lower Intestinal Tract, Via Natural or Artificial Opening Endoscopic (ICD-10-PCS; CPT 45378; principal; 2023-11-27 10:30)
DX: R19.5 Other fecal abnormalities (principal); D12.0 Benign neoplasm of cecum; K64.0 First degree hemorrhoids; I10 Essential (primary) hypertension; E78.5 Hyperlipidemia, unspecified; R73.01 Impaired fasting glucose; R74.8 Abnormal levels of other serum enzymes; E66.01 Morbid (severe) obesity due to excess calories; Z68.41 Body mass index [BMI] 40.0-44.9, adult; Z79.899 Other long term (current) drug therapy
CPT/HCPCS: 45385; 88305; J2704

== ENCOUNTER → 2023-11-27 08:26 | Outpatient (BNV) | payer BC, SELFPAY | PROVIDERS: PCP Internal Medicine; Visit Provider Internal Medicine Gastroenterology | DX: Z12.11 Encounter for screening for malignant neoplasm of colon (principal); R19.5 Other fecal abnormalities; D12.0 Benign neoplasm of cecum; K64.0 First degree hemorrhoids | CPT/HCPCS: 45385 ==

== ENCOUNTER 2023-11-28 09:39 | Outpatient (REF) | payer BC, SELFPAY ==
[2023-11-28 12:07] LABS: Alanine Aminotransferase 18 U/L (0-40); Albumin Level 4.3 g/dL (3.5-5.0); Alkaline Phosphatase 70 U/L (39-117); Anion Gap 8 (12-20); Aspartate Amino Transferase 17 U/L (5-37); Bilirubin Total 0.5 mg/dL (0.0-1.0); Blood Urea Nitrogen 13 mg/dL (9-16); Calcium 9.7 mg/dL (8.4-10.2); Carbon Dioxide 28 mmol/L (22-29); Chloride 107 mmol/L (96-108); Cholesterol 159 mg/dL (<200); Estimated Glomerular Filt Rate > 60; Glucose Fasting 103 mg/dL (60-99); HDL Cholesterol 36 mg/dL (>40); LDL Cholesterol Calculated 106 mg/dL (<100); Sodium 139 mmol/L (135-145); Triglycerides 85 mg/dL (<150)
[2023-11-28 12:09] LABS: Vitamin D 25-OH Total 59.7 ng/mL (>30)
== END 2023-11-28 09:40 | disposition home or self-care (01) ==
LOC: HO.LAB 09:39
PROVIDERS: PCP Internal Medicine; Visit Provider Internal Medicine
DX: Z00.01 Encounter for general adult medical examination with abnormal findings (principal); R73.01 Impaired fasting glucose; G47.00 Insomnia, unspecified; E66.01 Morbid (severe) obesity due to excess calories; E78.5 Hyperlipidemia, unspecified; I10 Essential (primary) hypertension; F98.8 Other specified behavioral and emotional disorders with onset usually occurring in childhood and adolescence; E55.9 Vitamin D deficiency, unspecified
CPT/HCPCS: 36415; 80053; 80061; 82306

== ENCOUNTER 2023-12-04 08:20 | Outpatient (AMB) | payer BC, SELFPAY ==
--- NOTE | 2023-12-04 08:44 | MHC.PC.OV ---
Vital Signs 12/04/23 08:48 Height 5 ft 6 in Weight 223 lb BMI 36.0 BP 130/88 Blood Pressure Location Lt brachial Position Sitting Pulse 74 Pulse Source Pulse Oximeter Pulse Oximetry (%) 98 Oxygen Delivery Method Room Air Intake Visit Reasons: PE Intake Note: Patient here for physical exam. Pt would like to talk about a referral to entry level electrician and for hearing test. Allergies No Known Allergies Allergy (Verified 12/04/23 08:56) Medication List - Last Reconciled 12/04/23 by Lori Fong MD bisacodyl (Dulcolax (bisacodyl)) 20 mg (4 x 5 mg) PO ONCE 1 day bupropion HCl XL 300 mg PO QAM dextroamphetamine-amphetamine 10 mg 10 mg PO BID lisinopril 20 mg PO DAILY multivitamin 1 tab PO DAILY rosuvastatin 5 mg PO .three times a week 90 days zolpidem 10 mg PO BEDTIME PRN Tobacco use date assessed: 06/02/23 Dental Screening Dental Screen Date: 06/02/23 HPI PE HPI Details 53 year old? male with past medical history of dyslipidemia, hypertension, ADD, obesity, insomnia, and anxiety, here today for his physical exam. He has been exercise regularly, has been following waqas of a plant based diet, and has been losing weight. Had recent screening colonoscopy done with removal of a tubular adenoma polyp, due again for recheck in 3 years, and it also showed presence of hemorrhoids. Had recent fasting labs done which showed lipids controlled on rosuvastatin, mildly elevated fasting glucose in the prediabetic range, with normal vitamin-D level and electrolytes. Complains of persistent tinnitus, noticing some hearing loss with high-frequenc, would like to get his hearing checked. He also would like to see if he can get prescribed something to help him calm down when going to the dentist. Noticed that he would usually get a rash when he eats peanuts, would like referral to entry level electrician [facility] Medical History (Updated 12/07/23 @ 18:42 by Lori Fong MD) Anxiety about visiting dentist Food allergy, peanut Diminished hearing History of adenomatous polyp of colon Vitamin D deficiency Positive colorectal cancer screening using Cologuard test Elevated liver enzymes Colon cancer screening Impaired fasting glucose Insomnia Morbid obesity Dyslipidemia Essential hypertension Attention deficit disorder (ADD) in adult Surgical History No pertinent past surgical history Family History (Updated 12/04/23 @ 08:59 by Lori Fong MD) Father Arthritis Mother No problems noted. Brother No problems noted. 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 1. Little interest or pleasure in doing things: not at all 2. Feeling down, depressed, or hopeless: not at all 3. Trouble falling or staying asleep, or sleeping too much: not at all 4. Feeling tired or having little energy: not at all 5. Poor appetite or overeating: not at all 6. Feeling bad about yourself - or that you are a failure or have let yourself or your family down: not at all 7. Trouble concentrating on things, such as reading the newspaper or watching television: not at all 8. Moving or speaking so slowly that other people could have noticed. Or the opposite - being so fidgety or restless that you have been moving around a lot more than usual: not at all 9. Thoughts that you would be better off or of hurting yourself in some way: not at all Total score: 0 Depression Screening Interpretation: Negative Depression Screening Done: Yes 93622 - PHQ-9 Billing: Yes Source: Developed by Drs. Ariel Garcia, Dunia Maria, Milind Foster and colleagues, with an educational britta from [employer]. Thrive Questionnaire Date Thrive assessed: 11/28/23 I am a: Patient What is your living situation today?: I have a steady place to live Within the past 12 months, did the food you bought not last and you didn't have the money to get more?: I choose not to answer this question Within the past 12 months, did you worry whether your food would run out before you got money to buy more?: I choose not to answer this question Do you have trouble paying for medicines?: I choose not to answer this question Do you have trouble getting transportation to medical appointments?: I choose not to answer this question Do you have trouble paying your heating and electricity bill?: I choose not to answer this question Do you have trouble taking care of your child, family member or friend?: I choose not to answer this question Do you have trouble with day-to-day activities such as bathing, preparing meals, shopping, managing finances, etc.?: I choose not to answer this question Are you currently unemployed and looking for a job?: I choose not to answer this question Are you interested in more education?: I choose not to answer this question Please select the resources that you would like help with: None Currently or been in a relationship where the following occur: I choose not to answer THRIVE Score: 0 AUDIT C Alcohol Use Questionnaire (AUDIT-C) 1. How often do you have a drink containing alcohol?: 2-4 times a month 2. How many drinks containing alcohol do you have on a typical day when you are drinking?: 1 or 2 3. How often do you have six or more drinks on one occasion?: Never Total Score: 2 Score Reviewed/Action Taken: No MINA-7 AMB Questionnaire MINA-7 Date MINA - 7 assessed: 06/02/23 Feeling nervous, anxious, or on edge: 0 = Not at all Not being able to stop or control worryin = Not at all Worrying too much about different things: 0 = Not at all Trouble relaxin = Not at all Being so restless that it is hard to sit still: 0 = Not at all Becoming easily annoyed or irritable: 0 = Not at all Feeling afraid as if something awful might happen: 0 = Not at all Total MINA-7 score (0-4 normal; 5-9 mild; 10-14 moderate; 15-21 severe): 0 Source: Developed by Drs. Ariel Garcia, Dunia Maria, Milind Foster and colleagues, with an educational britta from [employer]. MINA-7 Assessment Billing MINA-7 Assessment Tool: MINA-7 Assessment 60821 Review of Systems Const Reports as per HPI and Reports no additional complaints Eyes Denies change in vision ENT Reports no additional complaints and Denies dysphagia Card Reports no additional complaints Resp Reports no additional complaints GI Denies abdominal pain, Denies melena, Denies bloating, Denies change in bowel habits, Denies dysphagia, Denies excessive flatus, Denies heartburn, Denies diarrhea, Reports loose stools (Occasional with lactose), Denies nausea and Denies vomiting Reports no additional complaints Musc Reports no additional complaints Skin/Breast Denies lesions and Denies rash Neuro Reports no additional complaints Psych Reports no additional complaints Endo Reports no additional complaints Nasir/Lymph Reports no additional complaints Aller/Immun Reports no additional complaints Physical exam (Primary Care) Vital Signs: Last Vital Signs Pulse 74 12/04/23 08:48 BP 130/88 12/04/23 08:48 Pulse Ox 98 12/04/23 08:48 Oxygen Delivery Method Room Air 12/04/23 08:48 BMI result Body Mass Index 36.0 BMI Assessment/Plan discussion: High BMI High, discussed plan: lifestyle, weight reduction, dietary, physical activity and alcohol moderation Tobacco/Smoking Status: Tobacco use Status Tobacco use date assessed 06/02/23 12/04/23 08:52 Patient Tobacco Use Status Never used Tobacco 12/04/23 08:52 e-Cigarette/Vaping Use Never Used 12/04/23 08:52 PHQ-9: PHQ-9 Score PHQ-9: Total score 0 12/04/23 09:09 Depression Screening Interpretation: Negative Thrive Assessment: Date of Thrive Assessment Date Thrive assessed 11/28/23 12/04/23 08:52 Currently or been in a relationship where the following occur: I choose not to answer Const General: comfortable, no acute distress and alert Nutritional Appearance: obese morbidly obese Orientation/consciousness: patient oriented x3 HENMT Head: Yes normocephalic Ears: hearing grossly normal bilaterally General nose exam: Normal external nose present Face and sinus: Yes face symmetric Eyes Other: Wears corrective lenses, up-to-date with his vision exam, sees [facility] General: appearance normal, both eyes and all related structures Neck Neck: Yes full ROM, Yes no lymphadenopathy and Yes supple Chest Chest palpation & inspection: normal inspection of the chest and normal palpation of entire chest wall Resp Auscultation: clear to auscultation bilaterally Cardio Other: S1-S2 present , regular rate and rhythm GI Palpation (GI): Soft to palpation, nontender, no guarding and no masses Male General Exam: Yes normal external exam Back/Spine/Pelvis Back: No back tenderness Skin General skin exam: no rashes or lesions noted Neuro General: patient oriented x3, gait normal, moves all extremities, no focal motor deficits and CN's II-XI intact bilaterally Gait exam (Neuro): Normal gait present Extrem General: Yes full ROM, Yes no joint enlargement, Yes no clubbing, cyanosis or edema, Yes no pedal edema, Yes no calf tenderness and Yes normal gait Psych Appearance: grossly normal and well kempt Mental Status: mental status grossly normal Speech and movement: Clear speech present Affect: normal affect Results Reviewed Results Reviewed: Name: Hamlet Dyer Age/Sex: 53/M : 1970 Unit#: [id number] Attend Dr: Lori Fong MD Re11/28/23 Status: DEP [facility] Disch: SPEC : [id number] BLADIMIR: 11/28/23 STATUS: COMP REQ : [id number] RECD: 11/28/[address]: Lori Fong MD COMP: 11/28/239 ENTERED: 11/28/[address]: ORDERED: CMP Fast, Lipid Panel, Vitamin D 25-OH Test Result Flag Reference Sodium 139 135-145 mmol/L Potassium 4.0 3.3-5.1 mmol/L CL 107 96-108 mmol/L CO2 28 22-29 mmol/L Gap 8 L 12-20 BUN 13 9-16 mg/dL Creat 1.01 0.5-1.4 mg/dL EGFR > 60 NOTE: For [place] individuals, multiply the result by 1.210. Chronic Kidney Disease: Estimated GFR < 60 mL/min/1.73m2 Severe Kidney Disease: Estimated GFR < 15 mL/min/1.73m2 FBS 103 H 60-99 mg/dL A fasting glucose from 100-125 mg/dl is considered impaired (pre-diabetes). CA 9.7 8.4-10.2 mg/dL Total Bili 0.5 0.0-1.0 mg/dL AST (GOT) 17 5-37 U/L ALT (GPT) 18 0-40 U/L Protein, Total 7.0 6.5-8.0 g/dL Alb 4.3 3.5-5.0 g/dL Triglyceride 85 <150 mg/dL Desirable Triglyceride: less than 150 mg/dL Borderline High Triglyceride 150-199 mg/dL High Triglyceride: 200-499 mg/dL Very High Triglyceride: greater than or equal to 5OO mg/dL Cholesterol 159 <200 mg/dL Desirable Cholesterol: less than 200 mg/dL Borderline High Cholesterol: 200-239 mg/dL High Cholesterol: greater than 239 mg/dL LDL Calculated 106 H <100 mg/dL Desirable LDL: less than 100 mg/dL Near Optimal/Above Optimal LDL: 110-129 mg/dL Borderline High LDL: 130-159 mg/dL High LDL: 160-189 mg/dL Very High LDL: greater than or equal to 190 mg/dL HDL 36 L >40 mg/dL Desirable HDL: greater than 40 mg/dL Note: This HDL assay may give artificially low results in patients with liver disease. Alk Phos 70 39-117 U/L Vit D 25-OH Tot 59.7 >30 ng/mL Health Based Reference Values* < 20 ng/mL Deficient 20-30 ng/mL Insufficient > 30 ng/mL Sufficient Assessment and Plan Assessment & Plan (1) Annual visit for general adult medical examination with abnormal findings: Code(s): Z00.01 - Encounter for general adult medical examination with abnormal findings Plan: Reviewed recent lab results with patient. Continue regular dental visit every 6 months and regular eye exams, at least every 2 years. Take adequate calcium in diet and vitamin-D 3 at 2000 IU per cap once a day, in addition to weight-bearing exercises to help maintain good muscle tone and weight control. Instructed to do testicular exam check for any mass. Up-to-date with his screening colonoscopy. Reminded to get his yearly flu shot and COVID booster, up-to-date with Tdap, recommended to get vaccinated against shingles (2) Tinnitus: Code(s): H93.19 - Tinnitus, unspecified ear Qualifiers: Laterality: bilateral Qualified Code(s): H93.13 - Tinnitus, bilateral Plan: Referral to speech and hearing center in [facility] for further evaluation (3) Diminished hearing: Code(s): H91.90 - Unspecified hearing loss, unspecified ear Qualifiers: Laterality: bilateral Qualified Code(s): H91.93 - Unspecified hearing loss, bilateral Plan: Referral to speech and hearing center in [facility] for further evaluation (4) Food allergy, peanut: Code(s): Z91.010 - Allergy to peanuts Plan: [facility] for further evaluation (5) Attention deficit disorder (ADD) in adult: Code(s): F98.8 - Other specified behavioral and emotional disorders with onset usually occurring in childhood and adolescence Plan: Continue with dextroamphetamine-amphetamine 10 mg, 1 tablet twice a day (6) Essential hypertension: Code(s): I10 - Essential (primary) hypertension Plan: Blood pressure at goal of less than 130/80. Continue with lisinopril 20 mg daily, continue with healthy eating habits, plant based diet and getting regular exercise (7) Dyslipidemia: Code(s): E78.5 - Hyperlipidemia, unspecified Plan: Reviewed recent fasting lipid profile with patient with levels within normal limits . Continue rosuvastatin 5 mg 3 times a week , in addition to adherence to low-cholesterol diet and regular exercise, at least 30 minutes 3 to 4 times a week. Advised patient to make healthy food choices, eat more fruits, vegetables, whole grains, wild caught fish and low-fat dairy. Limit amount of meat and fried or fatty food products, as well as processed foods and fast foods. Follow-up scheduled with repeat fasting lipid panel in 6 months. (8) Morbid obesity: Code(s): E66.01 - Morbid (severe) obesity due to excess calories Plan: Continue with more plant based diet, Mediterranean diet is a healthy diet that helps, limit food high in fat, sugar, and calories. Eat slowly, pay attention to portion sizes, plan your meals ahead of time, continue with regular physical activity, at least 150 minutes of moderate intensity exercise, or 90 minutes per week of vigorous exercise. Keeping a food diary, tracking what you eat and your physical activity can help assess what improvements you can make. (9) Insomnia: Code(s): G47.00 - Insomnia, unspecified Qualifiers: Insomnia type: primary Qualified Code(s): F51.01 - Primary insomnia Plan: Continue zolpidem 10 mg 1 tablet at bedtime as needed for difficulty sleeping (10) Impaired fasting glucose: Code(s): R73.01 - Impaired fasting glucose Plan: Your previous fasting blood sugars were elevated above 100 mg/dL. Impaired glucose metabolism increases the risk for developing diabetes mellitus type 2, as well as heart attack and stroke later on. Lifestyle changes that promotes weight loss, healthy eating habits, and regular exercise are important, and can prevent the progression to diabetes (11) Anxiety about visiting dentist: Code(s): R45.89 - Other symptoms and signs involving emotional state Plan: Prescription given for alprazolam 0.25 mg to take at least an hour refer to dental appointment Orders: Orders Aspartate Amino Transferase 05/29/24 E66.01 - Morbid (severe) obesity due to excess calories, E78.5 - Hyperlipidemia, unspecified, F51.01 - Primary insomnia, F98.8 - Other specified behavioral and emotional disorders with onset usually occurring in childhood and adolescence, I10 - Essential (primary) hypertension, R73.01 - Impaired fasting glucose Basic Metabolic Panel Fasting 05/29/24 E66.01 - Morbid (severe) obesity due to excess calories, E78.5 - Hyperlipidemia, unspecified, F51.01 - Primary insomnia, F98.8 - Other specified behavioral and emotional disorders with onset usually occurring in childhood and adolescence, I10 - Essential (primary) hypertension, R73.01 - Impaired fasting glucose Alanine Aminotransferase 05/29/24 E66.01 - Morbid (severe) obesity due to excess calories, E78.5 - Hyperlipidemia, unspecified, F51.01 - Primary insomnia, F98.8 - Other specified behavioral and emotional disorders with onset usually occurring in childhood and adolescence, I10 - Essential (primary) hypertension, R73.01 - Impaired fasting glucose Lipid Panel 05/29/24 E66.01 - Morbid (severe) obesity due to excess calories, E78.5 - Hyperlipidemia, unspecified, F51.01 - Primary insomnia, F98.8 - Other specified behavioral and emotional disorders with onset usually occurring in childhood and adolescence, I10 - Essential (primary) hypertension, R73.01 - Impaired fasting glucose Vitamin D 25-OH Total 05/29/24 E66.01 - Morbid (severe) obesity due to excess calories, E78.5 - Hyperlipidemia, unspecified, F51.01 - Primary insomnia, F98.8 - Other specified behavioral and emotional disorders with onset usually occurring in childhood and adolescence, I10 - Essential (primary) hypertension, R73.01 - Impaired fasting glucose Hemoglobin A1c 05/29/24 E66.01 - Morbid (severe) obesity due to excess calories, E78.5 - Hyperlipidemia, unspecified, F51.01 - Primary insomnia, F98.8 - Other specified behavioral and emotional disorders with onset usually occurring in childhood and adolescence, I10 - Essential (primary) hypertension, R73.01 - Impaired fasting glucose Referrals Speech and Hearing Referral H91.90 - Unspecified hearing loss, unspecified ear, H93.19 - Tinnitus, unspecified ear Allergy & Immunology Referral Z91.010 - Allergy to peanuts Medications: New alprazolam 0.25 mg PO DAILY 7 tabs 0RF Refilled zolpidem 10 mg PO BEDTIME PRN 10 tabs 0RF sleep G47.00 - Insomnia, unspecified Coding Level of Care Code Est Pt Prev Care 40-64y(71938) Diagnoses Annual visit for general adult medical examination with abnormal findings Z00.01 Tinnitus of both ears H93.13 Laterality: bilateral Decreased hearing of both ears H91.93 Laterality: bilateral Food allergy, peanut Z91.010 Attention deficit disorder (ADD) in adult F98.8 Essential hypertension I10 Dyslipidemia E78.5 Morbid obesity E66.01 Primary insomnia F51.01 Insomnia type: primary Impaired fasting glucose R73.01 Anxiety about visiting dentist R45.89 Additional Codes MINA-7 Assessment Billing - MINA-7 Assessment Tool: MINA-7 Assessment 33653 ([id number])
[2023-12-04 08:48] VITALS: BP 130/88; PULSE 74; O2SAT 98; BMI 36.0
== END 2023-12-04 09:17 | disposition home or self-care (01) ==
PROVIDERS: PCP Internal Medicine; Visit Provider Internal Medicine
DX: Z00.00 Encounter for general adult medical examination without abnormal findings (principal); H93.13 Tinnitus, bilateral; E66.01 Morbid (severe) obesity due to excess calories; Z68.36 Body mass index [BMI] 36.0-36.9, adult; Z91.010 Allergy to peanuts; H91.93 Unspecified hearing loss, bilateral; F98.8 Other specified behavioral and emotional disorders with onset usually occurring in childhood and adolescence; I10 Essential (primary) hypertension; E78.5 Hyperlipidemia, unspecified; F51.01 Primary insomnia; R73.01 Impaired fasting glucose; R45.89 Other symptoms and signs involving emotional state
CPT/HCPCS: 99396

== ENCOUNTER 2023-12-15 09:22 | Outpatient (AMB) | payer BC, SELFPAY ==
--- NOTE | 2023-12-15 09:32 | MHC.OFFVIS ---
Vital Signs 12/15/23 09:33 Height 5 ft 6 in Weight 223 lb 8.78 oz BMI 36.1 BP 120/74 Blood Pressure Location Rt brachial Position Sitting Pulse 66 Pulse Source Pulse Oximeter Pulse Oximetry (%) 98 Oxygen Delivery Method Room Air Intake Visit Reasons: S/P colo; Dr Reid Intake Note: Hamlet presents in office today for a scheduled post op FUV. CC; Pt denies any complications or concerns post op. Pt is here to discuss results. No new concerns or sx noted. Pt reports new found family hx of colon cancer. Pt was advised of this a few days prior to the procedure. 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 ?Occasional loose stools when patient drinks lactose. Denies any issues with anesthesia in the past.? Denies any history of sleep apnea.? No history infectious diseases in the past or present.? Not on any anticoagulation therapy.? No family or personal history of colon cancer or polyps.? However patient had positive Cologuard in May of 2023. Patient denies melena, hematochezia, unintentional weight loss or ribbon like stools.? Discussed at length the pre-procedure,? prep, diet & medications as well as what to expect prior, during and after the procedure.?? Stressed the importance of good bowel prep. ?Recommended the use of Vaseline or Calmoseptine OTC & baby wipes with bowel movements to promote comfort.? ?Patient verbalizes understanding and agrees to plan of care.? He was given the opportunity to ask questions and all questions answered.? We will see him after the procedure.? Medications New bisacodyl (Dulcolax (bisacodyl)) take 4 tabs at noon the day before your colonoscopy 20 mg (4 x 5 mg) PO ONCE 1 day 4 tabs 0RF Z12.11 polyethylene glycol 3350 (Miralax) As directed by gastroenterology department at [facility] 238 grams PO ONCE 238 grams 0RF Z12.11 COLONOSCOPY: Findings: Terminal Ileum-normal Cecum: 6-8 mm sessile polyp removed with cold snare Right sided retroflexion- normal Ascending Colon: normal Transverse Colon -normal Descending Colon:normal Sigmoid Colon: normal Rectum: Retroflexion with moderate sized inflammed internal hemorrhoids seen, grade I Anorectum - normal Intervention: cold snare Colon preparation: [place] Bowel Preparation Scale Right colon; 2 Transverse colon: 3 Left colon; 2 (0 = Unprepared colon segment with mucosa not seen due to solid stool that cannot be cleared. 1 = Portion of mucosa of the colon segment seen, but other areas of the colon segment not well seen due to staining, residual stool and/or opaque liquid. 2 = Minor amount of residual staining, small fragments of stool and/or opaque liquid, but mucosa of colon segment seen well. 3 = Entire mucosa of colon segment seen well with no residual staining, small fragments of stool or opaque liquid) Impression and Post Procedure Diagnosis: colon polyp internal hemorrhoids Plan: High fiber diet leaflet Avoid straining at stool, epsom salts and sitz bath, anusol supps or cream Repeat Colonoscopy in 5-6 years due to polyp or earlier if clinically indicated PATHOLOGY RESULTS Diagnosis Cecum, polypectomy: Tubular adenoma; negative for high-grade dysplasia or carcinoma TODAY'S VISIT Patient is here today for follow-up. Patient denies any ill effects from the prep, anesthesia or procedure itself. Patient was found to have 1 small polyp, tubular adenoma found on biopsy without high-grade dysplasia or carcinoma. Patient reports that he just found out from his mom that his paternal grandfather from colorectal cancer. Colonoscopy will need to be done every 5 years, sooner if clinically necessary. Patient denies any GI concerning symptoms. Internal hemorrhoids without complications found. [facility] Medical History (Updated 12/15/23 @ 09:56 by Torrie Clemente LEAVE COORDINATOR-) Tubular adenoma of colon Family history of colorectal cancer Anxiety about visiting dentist Food allergy, peanut Diminished hearing History of adenomatous polyp of colon Vitamin D deficiency Positive colorectal cancer screening using Cologuard test Elevated liver enzymes Colon cancer screening Impaired fasting glucose Insomnia Morbid obesity Dyslipidemia Essential hypertension Attention deficit disorder (ADD) in adult Surgical History No pertinent past surgical history Family History Father Arthritis Mother No problems noted. Brother No problems noted. 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 Current occupational exposures/hazards: No Cognitive needs: No Hearing needs: No Vision needs: Yes Review of Systems Const Denies weight gain and Denies weight loss ENT Reports no additional complaints, Denies dysphagia and Denies odynophagia Card Reports no additional complaints Resp Reports no additional complaints GI Denies abdominal pain, Denies belching, Denies melena, Denies bloating, Denies change in bowel habits, Denies dysphagia, Denies excessive flatus, Denies dyspepsia, Denies heartburn, Denies diarrhea, Denies loose stools, Denies nausea, Denies odynophagia and Denies vomiting Reports no additional complaints Musc Reports no additional complaints Neuro Reports no additional complaints Psych Reports no additional complaints Endo Reports no additional complaints Physical Exam Vital Signs: Last Vital Signs Pulse 66 12/15/23 09:33 BP 120/74 12/15/23 09:33 Pulse Ox 98 12/15/23 09:33 Oxygen Delivery Method Room Air 12/15/23 09:33 BMI result Body Mass Index 36.1 Const General: healthy appearing and no acute distress Nutritional Appearance: obese Orientation/consciousness: patient oriented x3 Resp Effort & Inspection: normal respiratory effort, able to speak in complete sentences, no tracheal deviation and symmetric chest movement Auscultation: clear to auscultation bilaterally Cardio Rate: regular rate GI Inspection: Yes normal to inspection, No distended and Yes obesity Palpation (GI): Soft to palpation, not firm, nontender and No hepatosplenomegaly present Auscultation: normal bowel sounds General: Yes no CVA tenderness Back/Spine/Pelvis Back: no CVA tenderness Skin General skin exam: elasticity normal, turgor normal and dry skin Neuro General: patient oriented x3 Psych Appearance: grossly normal Mental Status: mental status grossly normal Assessment & Plan Assessment & Plan (1) Tubular adenoma of colon: Code(s): D12.6 - Benign neoplasm of colon, unspecified Category: Medical (2) Internal hemorrhoids without complication: Code(s): K64.8 - Other hemorrhoids (3) Status post colonoscopy: Code(s): Z98.890 - Other specified postprocedural states (4) Family history of colorectal cancer: Comment: Paternal grandfather Code(s): Z80.0 - Family history of malignant neoplasm of digestive organs Category: Medical Plan Colonoscopy in 5 years, sooner if clinically necessary. Positive family history of colorectal cancer. Patient's paternal grandfather had CRC. Patient will follow-up in the office on as needed basis. He is agreeable to this plan and verbalizes understanding of instructions. He was given the opportunity to ask questions and all questions answered. Thank you for allowing me to participate in his care Coding Level of Care Code Est Pt Level 3 (53116) Diagnoses Tubular adenoma of colon D12.6 Internal hemorrhoids without complication K64.8 Status post colonoscopy Z98.890 Family history of colorectal cancer Z80.0 Time Spent (min) 25 Comment 15 minutes spent with patient and additional 10 minutes spent reviewing his records
[2023-12-15 09:33] VITALS: BP 120/74; PULSE 66; O2SAT 98; BMI 36.1
== END 2023-12-15 10:22 | disposition home or self-care (01) ==
PROVIDERS: PCP Internal Medicine; Visit Provider Nurse Practitioner Family
DX: D12.6 Benign neoplasm of colon, unspecified (principal); K64.8 Other hemorrhoids; Z98.890 Other specified postprocedural states; Z80.0 Family history of malignant neoplasm of digestive organs
CPT/HCPCS: 99213

== ENCOUNTER → 2023-12-15 09:22 | Outpatient (BNVA) | payer BC, SELFPAY | PROVIDERS: PCP Internal Medicine; Visit Provider Nurse Practitioner Family ==

== ENCOUNTER 2024-01-06 07:59 | Outpatient (REF) | payer BC, SELFPAY | END 2024-01-06 08:00 | disposition home or self-care (01) | LOC: HO.SH 07:59 | PROVIDERS: Visit Provider Internal Medicine | DX: Z01.118 Encounter for examination of ears and hearing with other abnormal findings (principal); H90.3 Sensorineural hearing loss, bilateral; H93.13 Tinnitus, bilateral | CPT/HCPCS: 92557 ==

== ENCOUNTER 2024-05-27 06:48 | Outpatient (REF) | payer BC, SELFPAY ==
[2024-05-27 07:25] LABS: Estimated Average Glucose 105 mg/dL; Hemoglobin A1c % 5.3 % (<6.0); Total Hemoglobin (HGBA1C) 3754.9385 umol/L
[2024-05-27 07:43] LABS: Alanine Aminotransferase 12 U/L (0-40); Anion Gap 10 (12-20); Aspartate Amino Transferase 22 U/L (5-37); Blood Urea Nitrogen 18 mg/dL (9-16); Calcium 9.1 mg/dL (8.4-10.2); Carbon Dioxide 28 mmol/L (22-29); Chloride 107 mmol/L (96-108); Cholesterol 181 mg/dL (<200); Estimated Glomerular Filt Rate > 60; Glucose Fasting 103 mg/dL (60-99); HDL Cholesterol 68 mg/dL (>40); LDL Cholesterol Calculated 101 mg/dL (<100); Potassium 4.5 mmol/L (3.3-5.1); Sodium 140 mmol/L (135-145); Triglycerides 61 mg/dL (<150)
[2024-05-27 07:57] LABS: Vitamin D 25-OH Total 64.2 ng/mL (>30)
== END 2024-05-27 06:49 | disposition home or self-care (01) ==
LOC: HO.LAB 06:48
PROVIDERS: PCP Internal Medicine; Visit Provider Internal Medicine
DX: Z00.01 Encounter for general adult medical examination with abnormal findings (principal); E66.01 Morbid (severe) obesity due to excess calories; E78.5 Hyperlipidemia, unspecified; I10 Essential (primary) hypertension; F98.8 Other specified behavioral and emotional disorders with onset usually occurring in childhood and adolescence; R73.01 Impaired fasting glucose; F51.01 Primary insomnia; G47.00 Insomnia, unspecified
CPT/HCPCS: 36415; 80048; 80061; 82306; 83036; 84450; 84460

== ENCOUNTER 2024-05-31 07:56 | Outpatient (AMB) | payer BC, SELFPAY ==
[2024-05-31 08:08] VITALS: BP 112/70; PULSE 82; RESP 16; TEMP 36.9; O2SAT 98; BMI 33.7
--- NOTE | 2024-05-31 08:08 | MHC.PC.OV ---
Vital Signs 05/31/24 08:08 Height 5 ft 6 in Weight 209 lb BMI 33.7 BP 112/70 Blood Pressure Location Rt brachial Position Sitting Respiration 16 Pulse 82 Pulse Source Pulse Oximeter Temp 98.4 F Temp Source Oral Pulse Oximetry (%) 98 Oxygen Delivery Method Room Air Intake Visit Reasons: 6 month follow up Intake Note: Pt is here today for a 6mo. f/u Allergies No Known Allergies Allergy (Verified 05/31/24 08:18) Medication List - Last Reconciled 05/31/24 by Lori Fong MD alprazolam 0.25 mg PO DAILY bupropion HCl XL 300 mg PO QAM dextroamphetamine-amphetamine 10 mg 10 mg PO BID lisinopril 20 mg PO DAILY multivitamin 1 tab PO DAILY rosuvastatin 5 mg PO .three times a week 90 days zolpidem 10 mg PO BEDTIME PRN Tobacco use date assessed: 05/31/24 Dental Screening Dental Screen Date: 05/31/24 HPI 6 month follow up HPI Details 54 year old? male with past medical history of dyslipidemia, hypertension, ADD, obesity, insomnia, and anxiety, here today for his 6 month follow up. Feeling well, has lost a significant amount of weight since last visit, and recent fasting labs showed lipids, fasting glucose, renal function and electrolytes within normal limits. States that he has been under lot of stress, as he was recently let go from his job in the [employer], and is currently very busy looking for employment. Requesting to go up on his Adderall dose temporarily.. ON LICENSE OF [facility] Medical History (Updated 06/06/24 @ 23:45 by Lori Fong MD) Obesity (BMI 30.0-34.9) Generalized anxiety disorder Tubular adenoma of colon Family history of colorectal cancer Anxiety about visiting dentist Food allergy, peanut Diminished hearing History of adenomatous polyp of colon Vitamin D deficiency Positive colorectal cancer screening using Cologuard test Elevated liver enzymes Colon cancer screening Impaired fasting glucose Insomnia Dyslipidemia Essential hypertension Attention deficit disorder (ADD) in adult Surgical History No pertinent past surgical history Family History Father Arthritis Mother No problems noted. Brother No problems noted. 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 1. Little interest or pleasure in doing things: not at all 2. Feeling down, depressed, or hopeless: not at all 3. Trouble falling or staying asleep, or sleeping too much: not at all 4. Feeling tired or having little energy: not at all 5. Poor appetite or overeating: not at all 6. Feeling bad about yourself - or that you are a failure or have let yourself or your family down: not at all 7. Trouble concentrating on things, such as reading the newspaper or watching television: not at all 8. Moving or speaking so slowly that other people could have noticed. Or the opposite - being so fidgety or restless that you have been moving around a lot more than usual: not at all 9. Thoughts that you would be better off or of hurting yourself in some way: not at all Total score: 0 Depression Screening Interpretation: Negative Depression Screening Done: Yes 07449 - PHQ-9 Billing: Yes Source: Developed by Drs. Ariel Garcia, Dunia Maria, Milind Foster and colleagues, with an educational britta from [employer]. Thrive Questionnaire Date Thrive assessed: 05/31/24 I am a: Patient What is your living situation today?: I choose not to answer this question Within the past 12 months, did the food you bought not last and you didn't have the money to get more?: I choose not to answer this question Within the past 12 months, did you worry whether your food would run out before you got money to buy more?: I choose not to answer this question Do you have trouble paying for medicines?: I choose not to answer this question Do you have trouble getting transportation to medical appointments?: I choose not to answer this question Do you have trouble paying your heating and electricity bill?: I choose not to answer this question Do you have trouble taking care of your child, family member or friend?: I choose not to answer this question Do you have trouble with day-to-day activities such as bathing, preparing meals, shopping, managing finances, etc.?: I choose not to answer this question Are you currently unemployed and looking for a job?: I choose not to answer this question Are you interested in more education?: I choose not to answer this question Please select the resources that you would like help with: None Currently or been in a relationship where the following occur: I choose not to answer THRIVE Score: 0 AUDIT C Alcohol Use Questionnaire (AUDIT-C) 1. How often do you have a drink containing alcohol?: 2-4 times a month 2. How many drinks containing alcohol do you have on a typical day when you are drinking?: 1 or 2 3. How often do you have six or more drinks on one occasion?: Never Total Score: 2 MINA-7 AMB Questionnaire MINA-7 Date MINA - 7 assessed: 05/31/24 Feeling nervous, anxious, or on edge: 0 = Not at all Not being able to stop or control worryin = Not at all Worrying too much about different things: 0 = Not at all Trouble relaxin = Not at all Being so restless that it is hard to sit still: 0 = Not at all Becoming easily annoyed or irritable: 0 = Not at all Feeling afraid as if something awful might happen: 0 = Not at all Total MINA-7 score (0-4 normal; 5-9 mild; 10-14 moderate; 15-21 severe): 0 Source: Developed by Drs. Ariel Garcia, Dunia Maria, Milind Foster and colleagues, with an educational britta from [employer]. Review of Systems Const Reports as per HPI ENT Reports no additional complaints Card Reports no additional complaints Resp Reports no additional complaints GI Denies abdominal pain, Denies change in bowel habits, Denies dyspepsia and Denies heartburn Reports no additional complaints Musc Reports no additional complaints Neuro Reports no additional complaints Psych Reports as per HPI Endo Reports no additional complaints Physical exam (Primary Care) Vital Signs: Last Vital Signs Temp 98.4 F 05/31/24 08:08 Pulse 82 05/31/24 08:08 Resp 16 05/31/24 08:08 BP 112/70 05/31/24 08:08 Pulse Ox 98 05/31/24 08:08 Oxygen Delivery Method Room Air 05/31/24 08:08 BMI result Body Mass Index 33.7 Tobacco/Smoking Status: Tobacco use Status Tobacco use date assessed 05/31/24 05/31/24 08:10 Patient Tobacco Use Status Never used Tobacco 05/31/24 08:10 e-Cigarette/Vaping Use Never Used 05/31/24 08:10 PHQ-9: PHQ-9 Score PHQ-9: Total score 0 05/31/24 08:18 Depression Screening Interpretation: Negative Thrive Assessment: Date of Thrive Assessment Date Thrive assessed 05/31/24 05/31/24 08:10 Currently or been in a relationship where the following occur: I choose not to answer Const General: comfortable, no acute distress and alert Nutritional Appearance: obese Orientation/consciousness: patient oriented x3 HENMT Head: Yes normocephalic General nose exam: Normal external nose present Face and sinus: Yes face symmetric Eyes Other: Wears corrective lenses, up-to-date with his vision exam, sees [facility] General: appearance normal, both eyes and all related structures Neck Neck: Yes full ROM, Yes no lymphadenopathy and Yes supple Resp Auscultation: clear to auscultation bilaterally Cardio Other: S1-S2 present , regular rate and rhythm GI Palpation (GI): Soft to palpation, nontender, no guarding and no masses Back/Spine/Pelvis Back: No back tenderness Skin General skin exam: no rashes or lesions noted Neuro General: patient oriented x3, gait normal, moves all extremities, no focal motor deficits and CN's II-XI intact bilaterally Gait exam (Neuro): Normal gait present Extrem General: Yes full ROM, Yes no joint enlargement, Yes no clubbing, cyanosis or edema, Yes no pedal edema, Yes no calf tenderness and Yes normal gait Psych Appearance: grossly normal and well kempt Mental Status: mental status grossly normal Speech and movement: Clear speech present Affect: normal affect Results Reviewed Results Reviewed: Laboratory Tests 05/27/24 06:58 Estimat Average Glucose 105 Hemoglobin A1c % 5.3 Name: Hamlet Dyer Age/Sex: 54/M : 1970 Unit#: [id number] Attend Dr: Lori Fong MD Re05/27/24 Status: DEP REF [facility] Disch: SPEC : [id number] BLADIMIR: 05/27/24 STATUS: COMP REQ : [id number] RECD: 05/27/[address]: Lori Fong MD COMP: 05/27/24 ENTERED: 05/27/[address]: ORDERED: Met Prof Fast, AST, ALT, Lipid Panel, Vitamin D 25-OH Test Result Flag Reference Sodium 140 135-145 mmol/L Potassium 4.5 3.3-5.1 mmol/L CL 107 96-108 mmol/L CO2 28 22-29 mmol/L Gap 10 L 12-20 BUN 18 H 9-16 mg/dL Creat 0.94 0.5-1.4 mg/dL eGFR > 60 Chronic Kidney Disease: Estimated GFR < 60 mL/min/1.73m2 Severe Kidney Disease: Estimated GFR < 15 mL/min/1.73m2 FBS 103 H 60-99 mg/dL A fasting glucose from 100-125 mg/dl is considered impaired (pre-diabetes). CA 9.1 # 8.4-10.2 mg/dL AST (GOT) 22 5-37 U/L ALT (GPT) 12 0-40 U/L Triglyceride 61 <150 mg/dL Desirable Triglyceride: less than 150 mg/dL Borderline High Triglyceride 150-199 mg/dL High Triglyceride: 200-499 mg/dL Very High Triglyceride: greater than or equal to 5OO mg/dL Cholesterol 181 <200 mg/dL Desirable Cholesterol: less than 200 mg/dL Borderline High Cholesterol: 200-239 mg/dL High Cholesterol: greater than 239 mg/dL LDL Calculated 101 H <100 mg/dL Desirable LDL: less than 100 mg/dL Near Optimal/Above Optimal LDL: 110-129 mg/dL Borderline High LDL: 130-159 mg/dL High LDL: 160-189 mg/dL Very High LDL: greater than or equal to 190 mg/dL HDL 68 >40 mg/dL Desirable HDL: greater than 40 mg/dL Note: This HDL assay may give artificially low results in patients with liver disease. Vit D 25-OH Tot 64.2 >30 ng/mL Health Based Reference Values* < 20 ng/mL Deficient 20-30 ng/mL Insufficient > 30 ng/mL Sufficient Coding Level of Care Code Est Pt Level 4 (51652) Complex EM visit Add On G2211 Diagnoses Impaired fasting glucose R73.01 Attention deficit disorder (ADD) in adult F98.8 Essential hypertension I10 Dyslipidemia E78.5 Primary insomnia F51.01 Insomnia type: primary Generalized anxiety disorder F41.1 Obesity (BMI 30.0-34.9) E66.811 Additional Codes PHQ-9 - 21827 - PHQ-9 Billing: Yes ([id number]) Assessment & Plan Assessment & Plan (1) Impaired fasting glucose: Code(s): R73.01 - Impaired fasting glucose Category: Medical Plan: Improvement in blood sugar levels after losing weight, hemoglobin A1c now at 5 point 3% (2) Attention deficit disorder (ADD) in adult: Code(s): F98.8 - Other specified behavioral and emotional disorders with onset usually occurring in childhood and adolescence Category: Medical Plan: Temporary increase in his dextroamphetamine dose to 20 mg twice a day. (3) Essential hypertension: Code(s): I10 - Essential (primary) hypertension Category: Medical Plan: Blood pressure at goal of less than 130/80. Continue with lisinopril 20 mg daily. Reinforced importance of following a low sodium diet, getting regular exercise, and lowering stress levels. (4) Dyslipidemia: Code(s): E78.5 - Hyperlipidemia, unspecified Category: Medical Plan: Fasting lipids are within normal limits, continued on rosuvastatin 5 mg 3 times a week (5) Insomnia: Code(s): G47.00 - Insomnia, unspecified Category: Medical Qualifiers: Insomnia type: primary Qualified Code(s): F51.01 - Primary insomnia Plan: Takes zolpidem as needed for difficulty sleeping (6) Generalized anxiety disorder: Code(s): F41.1 - Generalized anxiety disorder Category: Medical Plan: Continued on bupropion 300 mg daily in a.m. and takes lorazepam as needed for acute anxiety attacks. (7) Obesity (BMI 30.0-34.9): Code(s): E66.811 - Obesity, class 1 Category: Medical Plan: Improvement in weight noted through diet and exercise, continue with lifestyle change Medications: Changed From alprazolam 0.25 mg PO DAILY 7 tabs 0RF To alprazolam 0.25 mg PO DAILY PRN 30 tabs 0RF anxiety From dextroamphetamine-amphetamine 10 mg Do not take 2nd dose later than 3 pm 10 mg PO BID 60 tabs 0RF F98.8 - Other specified behavioral and emotional disorders with onset usually occurring in childhood and adolescence To dextroamphetamine-amphetamine 10 mg Do not take 2nd dose later than 3 pm 20 mg (2 x 10 mg) PO BID 120 tabs 0RF F98.8 - Other specified behavioral and emotional disorders with onset usually occurring in childhood and adolescence
== END 2024-05-31 09:43 | disposition home or self-care (01) ==
PROVIDERS: PCP Internal Medicine; Visit Provider Internal Medicine
DX: R73.01 Impaired fasting glucose (principal); F98.8 Other specified behavioral and emotional disorders with onset usually occurring in childhood and adolescence; E66.811 Obesity, class 1; Z68.33 Body mass index [BMI] 33.0-33.9, adult; I10 Essential (primary) hypertension; E78.5 Hyperlipidemia, unspecified; F51.01 Primary insomnia; F41.1 Generalized anxiety disorder

== ENCOUNTER → 2024-05-31 07:56 | Outpatient (BNVA) | payer BC, SELFPAY | PROVIDERS: PCP Internal Medicine; Visit Provider Internal Medicine | DX: R73.01 Impaired fasting glucose (principal); F98.8 Other specified behavioral and emotional disorders with onset usually occurring in childhood and adolescence; I10 Essential (primary) hypertension; E78.5 Hyperlipidemia, unspecified; F51.01 Primary insomnia; F41.1 Generalized anxiety disorder; E66.811 Obesity, class 1; Z68.33 Body mass index [BMI] 33.0-33.9, adult; Z79.899 Other long term (current) drug therapy | CPT/HCPCS: 96127 ==

== ENCOUNTER 2024-12-16 08:00 | Outpatient (REF) | payer OTHER, SELFPAY | END 2024-12-16 08:01 | disposition home or self-care (01) | LOC: HO.LAB 08:00 | PROVIDERS: PCP Internal Medicine; Visit Provider Internal Medicine | DX: Z13.89 Encounter for screening for other disorder (principal) ==

== ENCOUNTER 2024-12-17 06:57 | Outpatient (REF) | payer OTHER, SELFPAY ==
[2024-12-17 07:55] LABS: Hemoglobin A1C 152.3800 umol/L; Total Hemoglobin (HGBA1C) 3757.3762 umol/L
[2024-12-17 08:15] LABS: Alanine Aminotransferase 22 U/L (0-40); Albumin Level 4.3 g/dL (3.5-5.0); Alkaline Phosphatase 75 U/L (39-117); Anion Gap 10 (12-20); Aspartate Amino Transferase 22 U/L (5-37); Blood Urea Nitrogen 15 mg/dL (9-16); Calcium 8.8 mg/dL (8.4-10.2); Carbon Dioxide 28 mmol/L (22-29); Chloride 107 mmol/L (96-108); Cholesterol 221 mg/dL (<200); Estimated Glomerular Filt Rate > 60; HDL Cholesterol 60 mg/dL (>40); Potassium 4.0 mmol/L (3.3-5.1); Sodium 141 mmol/L (135-145); Total Protein 6.9 g/dL (6.5-8.0); Triglycerides 98 mg/dL (<150)
== END 2024-12-17 06:58 | disposition home or self-care (01) ==
LOC: HO.LAB 06:57
PROVIDERS: PCP Internal Medicine; Visit Provider Internal Medicine
DX: R73.01 Impaired fasting glucose (principal); F98.8 Other specified behavioral and emotional disorders with onset usually occurring in childhood and adolescence; I10 Essential (primary) hypertension; E78.5 Hyperlipidemia, unspecified; E66.811 Obesity, class 1
CPT/HCPCS: 36415; 80053; 80061; 83036

== ENCOUNTER 2024-12-20 08:18 | Outpatient (AMB) | payer OTHER, SELFPAY ==
[2024-12-20 08:21] VITALS: BP 134/88; PULSE 85; RESP 15; TEMP 36.7; O2SAT 98; BMI 35.5
--- NOTE | 2024-12-20 08:21 | MHC.PC.OV ---
Vital Signs 12/20/24 08:21 Height 5 ft 6 in Weight 220 lb BMI 35.5 BP 134/88 Blood Pressure Location Lt brachial Position Sitting Respiration 15 Pulse 85 Pulse Source Pulse Oximeter Temp 98.0 F Temp Source Oral Pulse Oximetry (%) 98 Oxygen Delivery Method Room Air Intake Visit Reasons: PE Intake Note: Pt is here today for his PE: Last colonoscopy 11/27/23 Allergies No Known Allergies Allergy (Verified 12/20/24 08:41) Medication List - Last Reconciled 12/20/24 by Lori Fong MD alprazolam 0.25 mg PO DAILY PRN bupropion HCl XL 300 mg PO QAM dextroamphetamine-amphetamine 10 mg 20 mg (2 x 10 mg) PO BID lisinopril 20 mg PO DAILY multivitamin 1 tab PO DAILY rosuvastatin 5 mg PO .three times a week 90 days zolpidem 10 mg PO BEDTIME PRN Tobacco use date assessed: 12/20/24 Dental Screening Dental Screen Date: 12/20/24 Did you have a dental visit in the last 12 months?: Yes Did you have a dental problem in the last 6 months where you did not have access to dental care?: No Was dental information given to patient?: Patient has dentist HPI PE HPI Details 54 year old? male with past medical history of dyslipidemia, hypertension, ADD, obesity, insomnia, and anxiety, here today for his physical exam. Has gained a significant amount of weight since last visit, with fasting lipids showing higher LDL cholesterol, despite taking rosuvastatin 5 mg 3 times a week. States that over the last 2 months he has been run down, with generalized body malaise, sore throat and congestion, was not able to exercise due to getting short of breath on exertion. Symptoms have resolved, now feels back to normal Has a tubular adenoma polyp removed on colonoscopy done a year ago, repeat due again in [address] Reid. ADD stable and controlled on Adderall takes 20 mg in the morning and either 10 or 20 mg in the afternoon Takes an occasional lorazepam as needed for acute anxiety attacks, usually takes it before his dentist appointment. [facility] Medical History (Updated 12/20/24 @ 08:59 by Lori Fong MD) Obesity (BMI 30.0-34.9) Generalized anxiety disorder Family history of colorectal cancer Anxiety about visiting dentist Food allergy, peanut Diminished hearing History of adenomatous polyp of colon Vitamin D deficiency Positive colorectal cancer screening using Cologuard test Elevated liver enzymes Colon cancer screening Impaired fasting glucose Insomnia Dyslipidemia Essential hypertension Attention deficit disorder (ADD) in adult Surgical History No pertinent past surgical history Family History Father Arthritis Mother No problems noted. Brother No problems noted. Paternal Grandfather Colon cancer Social History Housing: House Are you a primary medicare compliance auditor to a significant other at home: No Do you presently have visiting nurse or other home services: No Alcohol intake: current Alcohol intake frequency: a few times a week Patient Tobacco Use Status: Never used Tobacco e-Cigarette/Vaping Use: Never Used Second Hand Smoke Exposure: No service: No Current occupational status: employed Current occupation: [employer] Current occupational exposures/hazards: No Cognitive needs: No Hearing needs: No Vision needs: Yes Questionnaire PHQ-9 Over the last 2 weeks, how often have you been bothered by any of the following problems? 1. Little interest or pleasure in doing things: not at all 2. Feeling down, depressed, or hopeless: not at all 3. Trouble falling or staying asleep, or sleeping too much: not at all 4. Feeling tired or having little energy: not at all 5. Poor appetite or overeating: not at all 6. Feeling bad about yourself - or that you are a failure or have let yourself or your family down: not at all 7. Trouble concentrating on things, such as reading the newspaper or watching television: not at all 8. Moving or speaking so slowly that other people could have noticed. Or the opposite - being so fidgety or restless that you have been moving around a lot more than usual: not at all 9. Thoughts that you would be better off or of hurting yourself in some way: not at all Total score: 0 Depression Screening Interpretation: Negative Depression Screening Done: Yes Source: Developed by Drs. Ariel Garcia, Dunia Maria, Milind Foster and colleagues, with an educational britta from [employer]. Thrive Questionnaire Date Thrive assessed: 05/31/24 I am a: Patient What is your living situation today?: I choose not to answer this question Within the past 12 months, did the food you bought not last and you didn't have the money to get more?: I choose not to answer this question Within the past 12 months, did you worry whether your food would run out before you got money to buy more?: I choose not to answer this question Do you have trouble paying for medicines?: I choose not to answer this question Do you have trouble getting transportation to medical appointments?: I choose not to answer this question Do you have trouble paying your heating and electricity bill?: I choose not to answer this question Do you have trouble taking care of your child, family member or friend?: I choose not to answer this question Do you have trouble with day-to-day activities such as bathing, preparing meals, shopping, managing finances, etc.?: I choose not to answer this question Are you currently unemployed and looking for a job?: I choose not to answer this question Are you interested in more education?: I choose not to answer this question Please select the resources that you would like help with: None Currently or been in a relationship where the following occur: I choose not to answer THRIVE Score: 0 AUDIT C Alcohol Use Questionnaire (AUDIT-C) 1. How often do you have a drink containing alcohol?: 2-4 times a month 2. How many drinks containing alcohol do you have on a typical day when you are drinking?: 1 or 2 3. How often do you have six or more drinks on one occasion?: Never Total Score: 2 MINA-7 AMB Questionnaire MINA-7 Date MINA - 7 assessed: 05/31/24 Feeling nervous, anxious, or on edge: 0 = Not at all Not being able to stop or control worryin = Not at all Worrying too much about different things: 0 = Not at all Trouble relaxin = Not at all Being so restless that it is hard to sit still: 0 = Not at all Becoming easily annoyed or irritable: 0 = Not at all Feeling afraid as if something awful might happen: 0 = Not at all Total MINA-7 score (0-4 normal; 5-9 mild; 10-14 moderate; 15-21 severe): 0 Source: Developed by Drs. Ariel Garcia, Dunia Maria, Milind Foster and colleagues, with an educational britta from [employer]. Review of Systems Const Reports no additional complaints Eyes Details: Goes to [facility] Reports requires corrective lenses ENT Reports no additional complaints Card Reports no additional complaints Resp Reports no additional complaints GI Denies abdominal pain, Denies change in bowel habits, Denies dyspepsia and Denies heartburn Reports no additional complaints Musc Reports no additional complaints Skin/Breast Denies lesions and Denies rash Neuro Reports no additional complaints Psych Reports as per HPI Endo Reports no additional complaints Nasir/Lymph Reports no additional complaints Aller/Immun Reports no additional complaints Physical exam (Primary Care) Vital Signs: Last Vital Signs Temp 98.0 F 12/20/24 08:21 Pulse 85 12/20/24 08:21 Resp 15 12/20/24 08:21 BP 134/88 12/20/24 08:21 Pulse Ox 98 12/20/24 08:21 Oxygen Delivery Method Room Air 12/20/24 08:21 BMI result Body Mass Index 35.5 Tobacco/Smoking Status: Tobacco use Status Tobacco use date assessed 12/20/24 12/20/24 08:22 Patient Tobacco Use Status Never used Tobacco 12/20/24 08:22 e-Cigarette/Vaping Use Never Used 12/20/24 08:22 PHQ-9: PHQ-9 Score PHQ-9: Total score 0 12/20/24 08:42 Depression Screening Interpretation: Negative Thrive Assessment: Date of Thrive Assessment Date Thrive assessed 05/31/24 12/20/24 08:22 Currently or been in a relationship where the following occur: I choose not to answer Advance Care Planning discussion: Completed/Scanned Date of discussion: 12/20/24 Who was present: Patient Forms completed: Health Care Proxy Time spent: 16-45 minutes Actual minutes spent: 2 Const General: comfortable, no acute distress and alert Nutritional Appearance: obese Orientation/consciousness: patient oriented x3 HENMT Head: Yes normocephalic General nose exam: Normal external nose present Face and sinus: Yes face symmetric Eyes Other: Wears corrective lenses, up-to-date with his vision exam, sees [facility] General: appearance normal, both eyes and all related structures Neck Neck: Yes full ROM, Yes no lymphadenopathy and Yes supple Resp Auscultation: clear to auscultation bilaterally Cardio Other: S1-S2 present , regular rate and rhythm GI Palpation (GI): Soft to palpation, nontender, no guarding and no masses Back/Spine/Pelvis Back: No back tenderness Skin General skin exam: no rashes or lesions noted Neuro General: patient oriented x3, gait normal, moves all extremities, no focal motor deficits and CN's II-XI intact bilaterally Gait exam (Neuro): Normal gait present Extrem General: Yes full ROM, Yes no joint enlargement, Yes no clubbing, cyanosis or edema, Yes no pedal edema, Yes no calf tenderness and Yes normal gait Psych Appearance: grossly normal and well kempt Mental Status: mental status grossly normal Speech and movement: Clear speech present Affect: normal affect Office Procedures Flu Questionnaire Does the patient have a severe egg allergy?: No Does the patient have severe life threatening allergies?: No Does the patient have a fever or illness today?: No Has the patient ever had Guillain-[place]rend[place] Syndrome?: No Has the patient ever had any past reaction to a flu shot?: No Immunizations Fluarix 1515-2058 (PF) 45 mcg (15 mcg x 3)/0.5 mL IM syringe Performing Provider: Lori Fong MD Performing Location: [facility] Administered by: Stacy Chanel CMA on 12/20/24 08:56 Dose Route Admin Location Dispensed Lot Number Expiration Date [facility] [employer] 0.5 mL IM Left Deltoid 0.5 mL [id number] 09/27/25 [id number] Promodity VIS Given Date VIS Provided VIS Publication Date 12/20/24 Single Vaccine 24 Eligibility Eligibility Date Funding Source Not [facility] Eligible 12/20/24 Private Results Reviewed Results Reviewed: Name: Hamlet Dyer Age/Sex: 54/M : 1970 Unit#: [id number] Attend Dr: Lori Fong MD Re12/17/24 Status: DEP REF Location: .LAB Disch: SPEC : [id number] BLADIMIR: 12/17/24-702 STATUS: COMP REQ : [id number] RECD: 12/17/[address]: Lori Fong MD COMP: 12/17/24 ENTERED: 12/17/24 [facility] [address]: ORDERED: CMP Fast, Lipid Panel Test Result Flag Reference Sodium 141 135-145 mmol/L Potassium 4.0 3.3-5.1 mmol/L CL 107 96-108 mmol/L CO2 28 22-29 mmol/L Gap 10 L 12-20 BUN 15 9-16 mg/dL Creat 0.95 0.5-1.4 mg/dL eGFR > 60 Chronic Kidney Disease: Estimated GFR < 60 mL/min/1.73m2 Severe Kidney Disease: Estimated GFR < 15 mL/min/1.73m2 FBS 100 H 60-99 mg/dL A fasting glucose from 100-125 mg/dl is considered impaired (pre-diabetes). CA 8.8 8.4-10.2 mg/dL Total Bili 0.7 0.0-1.0 mg/dL AST (GOT) 22 5-37 U/L ALT (GPT) 22 0-40 U/L Protein, Total 6.9 6.5-8.0 g/dL Alb 4.3 3.5-5.0 g/dL Triglyceride 98 <150 mg/dL Desirable Triglyceride: less than 150 mg/dL Borderline High Triglyceride 150-199 mg/dL High Triglyceride: 200-499 mg/dL Very High Triglyceride: greater than or equal to 5OO mg/dL Cholesterol 221 H <200 mg/dL Desirable Cholesterol: less than 200 mg/dL Borderline High Cholesterol: 200-239 mg/dL High Cholesterol: greater than 239 mg/dL LDL Calculated 142 H <100 mg/dL Desirable LDL: less than 100 mg/dL Near Optimal/Above Optimal LDL: 110-129 mg/dL Borderline High LDL: 130-159 mg/dL High LDL: 160-189 mg/dL Very High LDL: greater than or equal to 190 mg/dL HDL 60 >40 mg/dL Desirable HDL: greater than 40 mg/dL Note: This HDL assay may give artificially low results in patients with liver disease. Alk Phos 75 39-117 U/L Laboratory Tests 12/17/24 07:03 Estimat Average Glucose 123 Hemoglobin A1c % 5.9 Coding Level of Care Code Est Pt Prev Care 40-64y(62731) Diagnoses Annual visit for general adult medical examination with abnormal findings Z00.01 Primary insomnia F51.01 Insomnia type: primary Obesity (BMI 30.0-34.9) E66.811 Impaired fasting glucose R73.01 Dyslipidemia E78.5 Essential hypertension I10 Generalized anxiety disorder F41.1 Attention deficit disorder (ADD) in adult F98.8 Advance directive discussed with patient Z71.89 Additional Codes Vital Signs *Quality* - Advance Care Planning discussion: Completed/Scanned ([id number]) Vital Signs *Quality* - Time spent: 16-45 minutes ([id number]) Assessment & Plan Assessment & Plan (1) Annual visit for general adult medical examination with abnormal findings: Code(s): Z00.01 - Encounter for general adult medical examination with abnormal findings Plan: Reviewed recent fasting lab results with patient. Continued dental visit every 6 months and regular eye exams, at least every 2 years. Take adequate calcium in diet and vitamin-D 3 at 2000 IU per cap once a day, in addition to weight-bearing exercises to help maintain good muscle tone and weight control. Instructed to do self-testicular exam check for any mass. Up-to-date with all his vaccines, flu shot given today. Colonoscopy screening due again in 2028 (2) Insomnia: Code(s): G47.00 - Insomnia, unspecified Category: Medical Qualifiers: Insomnia type: primary Qualified Code(s): F51.01 - Primary insomnia Plan: Takes zolpidem as needed. (3) Obesity (BMI 30.0-34.9): Code(s): E66.811 - Obesity, class 1 Category: Medical Plan: Reinforced importance of doing regular moderate intensity exercise, and adherence to healthy eating habits. (4) Impaired fasting glucose: Code(s): R73.01 - Impaired fasting glucose Category: Medical Plan: Your previous fasting blood sugars were elevated above 100 mg/dL. Latest hemoglobin A1c is at 5.9%. Impaired glucose metabolism increases the risk for developing diabetes mellitus type 2, as well as heart attack and stroke later on. Lifestyle changes that promotes weight loss, healthy eating habits, and regular exercise are important, and can prevent the progression to diabetes (5) Dyslipidemia: Code(s): E78.5 - Hyperlipidemia, unspecified Category: Medical Plan: Higher LDL cholesterol as compared to last check on noted on latest labs done. Will continue on rosuvastatin 5 mg 3 times a week but reinforced importance of adhering to healthy eating habits and getting regular moderate intensity exercise daily bill will recheck again another fasting lipid panel in six-month (6) Essential hypertension: Code(s): I10 - Essential (primary) hypertension Category: Medical Plan: Blood pressure slightly higher than last check. Will continue on current dose of lisinopril 20 mg daily. Adherence to healthy eating habits and regular exercise advised (7) Generalized anxiety disorder: Code(s): F41.1 - Generalized anxiety disorder Category: Medical Plan: Continued on bupropion HCL XL 300 mg in the morning and takes alprazolam as needed for acute anxiety attack (8) Attention deficit disorder (ADD) in adult: Code(s): F98.8 - Other specified behavioral and emotional disorders with onset usually occurring in childhood and adolescence Category: Medical Plan: Controlled on current dose of dextroamphetamine-amphetamine, takes 20 mg in the morning and takes either 10 or 20 mg in the afternoon (9) Advance directive discussed with patient: Code(s): Z71.89 - Other specified counseling Plan: Initiated the conversation about Advanced Directives. Advanced Directives help patients prepare for current and future decisions about their medical treatment and place of care. Discussed with patient that it is a process where a patients current condition and prognosis are reviewed, their wishes for information regarding their illness are elicited, and likely medical dilemmas are presented and options discussed. Healthcare proxy form completed today. The form can be amended as needed, reviewed yearly and make changes as needed Orders: Orders Influenza 2992-4501 Immunization Today Z23 - Encounter for immunization Lipid Panel Today E78.5 - Hyperlipidemia, unspecified Medications: Refilled lisinopril 20 mg PO DAILY 90 tabs 4RF I10 - Essential (primary) hypertension rosuvastatin 5 mg PO .three times a week 36 tabs 4RF 90 days E78.5 - Hyperlipidemia, unspecified dextroamphetamine-amphetamine 10 mg Do not take 2nd dose later than 3 pm 20 mg (2 x 10 mg) PO BID 120 tabs 0RF F98.8 - Other specified behavioral and emotional disorders with onset usually occurring in childhood and adolescence zolpidem 10 mg PO BEDTIME PRN 10 tabs 0RF sleep G47.00 - Insomnia, unspecified
== END 2024-12-20 09:00 | disposition home or self-care (01) ==
LOC: HO.HMCC 08:19
PROVIDERS: PCP Internal Medicine; Visit Provider Internal Medicine
DX: Z00.00 Encounter for general adult medical examination without abnormal findings (principal); F51.01 Primary insomnia; E66.811 Obesity, class 1; Z68.35 Body mass index [BMI] 35.0-35.9, adult; R73.01 Impaired fasting glucose; E78.5 Hyperlipidemia, unspecified; I10 Essential (primary) hypertension; F41.1 Generalized anxiety disorder; F98.8 Other specified behavioral and emotional disorders with onset usually occurring in childhood and adolescence; Z71.89 Other specified counseling; Z23 Encounter for immunization

== ENCOUNTER → 2024-12-20 08:18 | Outpatient (BNVA) | payer OTHER, SELFPAY | PROVIDERS: PCP Internal Medicine; Visit Provider Internal Medicine | DX: Z00.01 Encounter for general adult medical examination with abnormal findings (principal); F98.8 Other specified behavioral and emotional disorders with onset usually occurring in childhood and adolescence; F51.01 Primary insomnia; E66.811 Obesity, class 1; R73.01 Impaired fasting glucose; E78.5 Hyperlipidemia, unspecified; I10 Essential (primary) hypertension; F41.1 Generalized anxiety disorder; Z23 Encounter for immunization; Z71.89 Other specified counseling; Z68.35 Body mass index [BMI] 35.0-35.9, adult | CPT/HCPCS: 90471; 90656; 96127 ==